=== PATIENT | male | born 1945 | race Caucasian/White ===

== ENCOUNTER 2023-10-28 11:27 | Observation (INO) | payer MEDICARE, OTHER, SELFPAY ==
[2023-10-28 11:28] VITALS: BP 115/79; PULSE 62; RESP 16; TEMP 36; O2SAT 96
[2023-10-28 11:49] LABS: Absolute Lymphocyte Count 1.02 X10^3/uL (0.83-4.51); Basophil# 0.06 X10^3/uL; Basophil% 0.8 % (0-1); Eosinophil# 0.17 X10^3/uL; Eosinophils% 2.2 % (0-5); Hematocrit 41.6 % (40-54); Hemoglobin 14.4 g/dL (13.0-16.5); Lymphocyte # 1.02 X10^3/ul (0.83-4.51); Lymphocyte % 13.1 % (19-41); Mean Corp Hgb Conc 34.6 g/dL (32-36); Mean Corpuscular Hgb 31.6 pg (27.0-32.0); Mean Corpuscular Volume 91.2 fL (80-94); Mean Platelet Vol. 10.9 fl (6.2-12.0); Monocyte% 6.4 % (0-10); NRBC Flagged by Analyzer 0 % (0-5); Neutrophil # 5.99 X10^3/uL (2.7-7.7); Neutrophil % 77.2 % (47-70); Platelet Count 228 K/mm3 (150-450); RBC Distribution Width CV 12.1 % (11.6-14.6); RBC Distribution Width SD 40.1 fl (35.1-43.9); Red Blood Count 4.56 M/mm3 (4.6-6.2); White Blood Count 7.8 K/mm3 (4.4-11.0)
[2023-10-28 11:53] LABS: Bedside Glucose > 500 mg/dL (74-106)
[2023-10-28 12:12] LABS: Mucous, Urine 0 SEEN /hpf (<or=2+); Red Blood Cells-Urine 0 SEEN /hpf (0-5)
--- NOTE | 2023-10-28 12:14 | EX.ED.DYSGE1 ---
HPI <SITA Biggs - Last Filed: 10/28/23 15:22> History of Present Illness Chief Complaint: Hyperglycemia Narrative Narrative: 78 old male with past medical history of type 2 diabetes states has had 2 weeks of dry mouth, increased thirst, fatigue and increased urination. He thinks his sugars might be running high but he does not check it at home. He has been on metformin 1000 twice a day for years. No insulin. He states he eats a lot of sweets. He has never been hospitalized for hyperglycemia or had DKA to his knowledge. He has no fever, chills, cough, abdominal pain or vomiting or diarrhea. PFSH <SITA Biggs - Last Filed: 10/28/23 15:22> [facility] Medical History HLD (hyperlipidemia) Diabetes Hypertension Home Medications ?Medication ?Instructions ?Recorded ?Last Taken ?Type atenolol 25 mg tablet 25 mg PO DAILY 10/28/23 10/28/23 History metformin 1,000 mg tablet 1,000 mg PO BID 10/28/23 10/28/23 History pantoprazole 20 mg tablet,delayed 20 mg PO DAILY 10/28/23 10/28/23 History release pioglitazone 15 mg tablet 15 mg PO DAILY 10/28/23 10/28/23 History rosuvastatin 40 mg tablet 40 mg PO QPM 10/28/23 10/27/23 History Allergy/AdvReac Type Severity Reaction Status Date / Time No Known Allergies Allergy Verified 10/28/23 11:28 Social History Smoking Status: Former smoker ROS <SITA Biggs - Last Filed: 10/28/23 15:22> ROS ED ROS Narrative Constitutional: Negative for fever, chills. CVS: Negative for chest pain Respiratory: Negative for shortness of breath. GI: Negative for abdominal pain, nausea, vomiting. EXAM <SITA Biggs - Last Filed: 10/28/23 15:22> Physical Exam Narrative Exam Narrative: CONST: Patient sitting in no acute distress. EYES: Normal inspection. ENT: Normal inspection, slightly dry mucous membranes. NECK: Normal inspection. RESP: No respiratory distress, CTAB. CVS: Regular rate and rhythm, no murmur, no gallop. ABD: Soft and nontender, no guarding or rebound, nondistended. SKIN: Color normal, no rash, warm, dry, intact. EXTREMITIES: Normal appearance, no pedal edema. NEURO: Alert and answering questions appropriately. PSYCH: Normal affect. Const Vital Signs: 10/28/23 11:28 10/28/23 11:59 10/28/23 13:08 Temperature 96.8 F L Temperature Source Temporal Pulse Rate 62 64 Respiratory Rate 16 16 Respiratory Effort Normal Non-Labored Respiratory Pattern Normal Blood Pressure 115/79 134/80 H Blood Pressure Mean 91 98 Pulse Ox 96 96 Oxygen Delivery Method Room Air Room Air 10/28/23 14:58 Temperature Temperature Source Pulse Rate 60 Respiratory Rate 18 Respiratory Effort Respiratory Pattern Blood Pressure 134/80 H Blood Pressure Mean 98 Pulse Ox 97 Oxygen Delivery Method Room Air <Dieter Collado MD - Last Filed: 10/28/23 19:37> Physical Exam Const Vital Signs: 10/28/23 11:28 10/28/23 11:59 10/28/23 13:08 Temperature 96.8 F L Temperature Source Temporal Pulse Rate 62 64 Respiratory Rate 16 16 Respiratory Effort Normal Non-Labored Respiratory Pattern Normal Blood Pressure 115/79 134/80 H Blood Pressure Mean 91 98 Pulse Ox 96 96 Oxygen Delivery Method Room Air Room Air 10/28/23 14:58 Temperature Temperature Source Pulse Rate 60 Respiratory Rate 18 Respiratory Effort Respiratory Pattern Blood Pressure 134/80 H Blood Pressure Mean 98 Pulse Ox 97 Oxygen Delivery Method Room Air MDM <SITA Biggs - Last Filed: 10/28/23 15:22> [facility] Narrative Medical decision making narrative: 78-year-old male with past medical history of type 2 diabetes on metformin presents with 2 weeks of fatigue, polydipsia and polyuria. He appears well and nontoxic. Vital signs stable. He has mildly dry mucous membranes with an otherwise benign exam. Blood glucose is 729 with normal CO2 and anion gap. Ketones negative. He has pseudohyponatremia at 125 with corrected sodium of 135, potassium 5.2, creatinine 1.57. Outside records on 03/05/2023 showed a CMP with normal creatinine of 1.06 so this is consistent with RAJENDRA. Blood gas shows normal pH of 7.363. This is consistent with diabetic hyperglycemia without DKA. After 2 L of IV fluids blood sugar is 474. I spoke with the hospitalist and Dr. Her recommended ordering Humalog 15 units and admission to [facility] for observation. Patient was agreeable with this plan. Lab Data Attestation: I reviewed the patient's lab results. Labs: Laboratory Results - last 24 hr 10/28/23 10/28/23 10/28/23 11:34 11:40 12:10 WBC 7.8 RBC 4.56 L Hgb 14.4 Hct 41.6 MCV 91.2 MCH 31.6 MCHC 34.6 RDW Std Deviation 40.1 RDW Coeff of Zen 12.1 Plt Count 228 MPV 10.9 Immature Gran % (Auto) 0.300 Neut % (Auto) 77.2 H Lymph % (Auto) 13.1 L [place] % (Auto) 6.4 Eos % (Auto) 2.2 Baso % (Auto) 0.8 Absolute Neuts (auto) 6.0 Absolute Lymphs (auto) 1.02 Nucleated RBC % 0 Sodium 125 L Potassium 5.2 H Chloride 92 L Carbon Dioxide 27.0 Anion Gap 6 BUN 22 H Creatinine 1.57 H Est GFR (MDRD) Af Amer 56 L Est GFR (MDRD) Non-Af 46 L BUN/Creatinine Ratio 14.0 Glucose 729 H* Calcium 9.7 Phosphorus 3.7 Magnesium 2.0 Total Bilirubin 1.30 H AST 12 L ALT 25 Alkaline Phosphatase 68 Total Protein 7.3 Albumin 3.7 Globulin 3.6 Albumin/Globulin Ratio 1.0 Urine Color Yellow Urine Clarity Clear Urine pH 6.5 Ur Specific [place] 1.005 Urine Protein Negative Urine Glucose (UA) 1000 H Urine Ketones 5 H Urine Occult Blood Negative Urine Nitrite Negative Urine Bilirubin Negative Urine Urobilinogen Normal Ur Leukocyte Esterase 500 H Urine RBC 0 SEEN Urine WBC 0-5 SEEN Ur Squamous Epith Cells 0-5 SEEN Urine Bacteria 1+ Urine Mucus 0 SEEN Urine Yeast 1+ Acetone Level POC Glucose > 500 H* 10/28/23 10/28/23 12:30 14:35 WBC RBC Hgb Hct MCV MCH MCHC RDW Std Deviation RDW Coeff of Zen Plt Count MPV Immature Gran % (Auto) Neut % (Auto) Lymph % (Auto) [place] % (Auto) Eos % (Auto) Baso % (Auto) Absolute Neuts (auto) Absolute Lymphs (auto) Nucleated RBC % Sodium Potassium Chloride Carbon Dioxide Anion Gap BUN Creatinine Est GFR (MDRD) Af Amer Est GFR (MDRD) Non-Af BUN/Creatinine Ratio Glucose Calcium Phosphorus Magnesium Total Bilirubin AST ALT Alkaline Phosphatase Total Protein Albumin Globulin Albumin/Globulin Ratio Urine Color Urine Clarity Urine pH Ur Specific [place] Urine Protein Urine Glucose (UA) Urine Ketones Urine Occult Blood Urine Nitrite Urine Bilirubin Urine Urobilinogen Ur Leukocyte Esterase Urine RBC Urine WBC Ur Squamous Epith Cells Urine Bacteria Urine Mucus Urine Yeast Acetone Level NEGATIVE POC Glucose 474 H* ABG Data ABG results: ABG 10/28/23 12:42 Specimen Type CHIDI Sample Site Not entered O2 % 21.0 VBG pH 7.36 VBG pO2 27 VBG HCO3 26 VBG Total CO2 27 VBG O2 Sat (Calc) 48 L VBG Base Excess 0 POC Mix VBG pCO2 Pt Tmp 45.1 O2 Delivery Device Not entered <Dieter Collado MD - Last Filed: 10/28/23 19:37> [facility] Lab Data Labs: Laboratory Results - last 24 hr 10/28/23 10/28/23 10/28/23 11:34 11:40 12:10 WBC 7.8 RBC 4.56 L Hgb 14.4 Hct 41.6 MCV 91.2 MCH 31.6 MCHC 34.6 RDW Std Deviation 40.1 RDW Coeff of Zen 12.1 Plt Count 228 MPV 10.9 Immature Gran % (Auto) 0.300 Neut % (Auto) 77.2 H Lymph % (Auto) 13.1 L [place] % (Auto) 6.4 Eos % (Auto) 2.2 Baso % (Auto) 0.8 Absolute Neuts (auto) 6.0 Absolute Lymphs (auto) 1.02 Nucleated RBC % 0 Sodium 125 L Potassium 5.2 H Chloride 92 L Carbon Dioxide 27.0 Anion Gap 6 BUN 22 H Creatinine 1.57 H Est GFR (MDRD) Af Amer 56 L Est GFR (MDRD) Non-Af 46 L BUN/Creatinine Ratio 14.0 Glucose 729 H* Calcium 9.7 Phosphorus 3.7 Magnesium 2.0 Total Bilirubin 1.30 H AST 12 L ALT 25 Alkaline Phosphatase 68 Total Protein 7.3 Albumin 3.7 Globulin 3.6 Albumin/Globulin Ratio 1.0 Urine Color Yellow Urine Clarity Clear Urine pH 6.5 Ur Specific [place] 1.005 Urine Protein Negative Urine Glucose (UA) 1000 H Urine Ketones 5 H Urine Occult Blood Negative Urine Nitrite Negative Urine Bilirubin Negative Urine Urobilinogen Normal Ur Leukocyte Esterase 500 H Urine RBC 0 SEEN Urine WBC 0-5 SEEN Ur Squamous Epith Cells 0-5 SEEN Urine Bacteria 1+ Urine Mucus 0 SEEN Urine Yeast 1+ Acetone Level POC Glucose > 500 H* 10/28/23 10/28/23 12:30 14:35 WBC RBC Hgb Hct MCV MCH MCHC RDW Std Deviation RDW Coeff of Zen Plt Count MPV Immature Gran % (Auto) Neut % (Auto) Lymph % (Auto) [place] % (Auto) Eos % (Auto) Baso % (Auto) Absolute Neuts (auto) Absolute Lymphs (auto) Nucleated RBC % Sodium Potassium Chloride Carbon Dioxide Anion Gap BUN Creatinine Est GFR (MDRD) Af Amer Est GFR (MDRD) Non-Af BUN/Creatinine Ratio Glucose Calcium Phosphorus Magnesium Total Bilirubin AST ALT Alkaline Phosphatase Total Protein Albumin Globulin Albumin/Globulin Ratio Urine Color Urine Clarity Urine pH Ur Specific [place] Urine Protein Urine Glucose (UA) Urine Ketones Urine Occult Blood Urine Nitrite Urine Bilirubin Urine Urobilinogen Ur Leukocyte Esterase Urine RBC Urine WBC Ur Squamous Epith Cells Urine Bacteria Urine Mucus Urine Yeast Acetone Level NEGATIVE POC Glucose 474 H* ABG Data ABG results: ABG 10/28/23 12:42 Specimen Type CHIDI Sample Site Not entered O2 % 21.0 VBG pH 7.36 VBG pO2 27 VBG HCO3 26 VBG Total CO2 27 VBG O2 Sat (Calc) 48 L VBG Base Excess 0 POC Mix VBG pCO2 Pt Tmp 45.1 O2 Delivery Device Not entered Management Discussion w/another healthcare provider: Hospitalist (Dr. Her) Treatment and Re-Evaluation :: Dr. Collado: I have personally performed a face to face assessment of the patient and have reviewed the JUANJO Note. I performed a substantive portion of the visit including all aspects of the following. My alexandra findings include: History is patient presents with feelings of generalized weakness, urinary frequency, does not check his blood sugars frequently although he is diabetic. Exam is afebrile. Vital signs noted. Regular rate and rhythm with intermittent bradycardia. Lungs clear to auscultation bilaterally. Abdomen soft nontender with normoactive bowel sounds. Neurological examination nonfocal and nonlateralizing. Medical Decision Making: Check labs. Concern is for hyperglycemia versus infectious process. Elevated blood sugars in the 700s. Administered 2 L normal saline. Recheck of blood sugar shows it to be in the 400s. Ketones negative. No evidence of diabetic ketoacidosis. Given his noncompliance, and still remaining elevated blood sugars, discussed with hospitalist for admission. Patient is in stable condition. Other additions or changes: [None] Discharge Plan Dx/Rx/DC Orders Clinical Impression: Hyperosmolar hyperglycemic state (HHS), RAJENDRA (acute kidney injury) Disposition Disposition: Acute Care Hospital [facility] Discharge Date/Time: 10/28/23 18:37
[2023-10-28 12:16] LABS: Color, Urine Yellow (Yellow); Glucose, Dipstick 1000 mg/dl (Normal); Ketone-Dipstick 5 mg/dl (Negative); Leukocyte Esterase-Dipstick 500 /ul (Negative); Nitrite-Dipstick Negative (Negative); Occult Blood-Urine Negative /ul (Negative); Protein-Dipstick Negative (Negative); Specific Gravity, Urine 1.005 (1.002-1.030); Urine Bilirubin Dipstick Negative (Negative); Urine Clarity Clear (Clear); Urine Urobilinogen Normal (Normal); Urine pH 6.5 (5.0 - 8.0)
[2023-10-28] MEDS: 0.9% Normal Saline (1000mL) 1,000 ML 999 ML IV ×2 (12:29→13:24)
[2023-10-28 12:30] LABS: Squamous Epithelial Cells - UA 0-5 SEEN /hpf (0-5); White Blood Cells 0-5 SEEN /hpf (0-5); Yeast-Urine 1+ /hpf (None Seen)
[2023-10-28 12:31] LABS: Bacteria 1+ /hpf (None Seen)
[2023-10-28 12:33] LABS: AST(SGOT) 12 U/L (15-37); Alanine Aminotransfer ALT/SGPT 25 U/L (16-61); Albumin, Serum 3.7 g/dL (3.2-5.0); Alkaline Phosphatase 68 U/L (45-117); Anion Gap 6 (5-15); BUN 22 mg/dL (7-18); Calcium,Total 9.7 mg/dL (8.5-10.1); Chloride 92 mmol/L (98-107); Creatinine, Serum 1.57 mg/dL (0.70-1.30); EST Glomerular Filtration Rate 46 mL/min (>60); Est Glom Filt Rate - Afr Amer 56 mL/min (>60); Globulin 3.6 g/dL (2.2-4.2); Glucose 729 mg/dL (74-106); Potassium 5.2 mmol/L (3.5-5.1); Protein, Total 7.3 g/dL (6.4-8.2); Sodium Level 125 mmol/L (136-145)
[2023-10-28 12:47] LABS: Blood Gas Specimen Type VEN; O2 Delivery Device Not entered; SITE Not entered; VBG BASE EXCESS 0 mmol/L (-1.0-3.5); VBG Bicarbonate 26 mmol/L (22-26); VBG PO2 27 mmHg (25-40); VBG SO2 48 % (50-70); VBG TCO2 27 mmol/L (23-33); VBG pCO2 45.1 mmHg (41-51); VBG pH 7.36 (7.32-7.42)
[2023-10-28 13:08] VITALS: BP 134/80; PULSE 64; RESP 16; O2SAT 96
[2023-10-28 14:53] LABS: Bedside Glucose 474 mg/dL (74-106)
[2023-10-28 14:58] VITALS: BP 134/80; PULSE 60; RESP 18; O2SAT 97
--- NOTE | 2023-10-28 15:18 | HP.PCM.HOS_ITS ---
[facility] - General General Date of Admission: 10/28/23 Date of Service: 10/28/23 Chief Complaint: Hypoglycemia with polyuria and polydipsia. HPI Narrative FRANK NOBLE, is a 78 M with history of known diabetes mellitus type 2 for many years came to ED with symptoms of generalized weakness, fatigue not feeling well for last 3 to 4 days. He says that he is having polyuria, polydipsia, and fatigue. Besides that, he denies any chest pain shortness of breath, fever, URI symptoms. Denies burning micturition. In ED, patient finger Accu-Chek was found very high and glucose in BMP was 729. Patient had 2 L of IV fluid normal saline bolus and then 15 units lispro insulin given. Patient is on oral hypoglycemic agents at home including metformin and pioglitazone. [facility] Medical History HLD (hyperlipidemia) Diabetes Hypertension Home Medications ?Medication ?Instructions ?Recorded ?Last Taken ?Type atenolol 25 mg tablet 25 mg PO DAILY 10/28/23 10/28/23 History metformin 1,000 mg tablet 1,000 mg PO BID 10/28/23 10/28/23 History pantoprazole 20 mg tablet,delayed 20 mg PO DAILY 10/28/23 10/28/23 History release pioglitazone 15 mg tablet 15 mg PO DAILY 10/28/23 10/28/23 History rosuvastatin 40 mg tablet 40 mg PO QPM 10/28/23 10/27/23 History Allergy/AdvReac Type Severity Reaction Status Date / Time No Known Allergies Allergy Verified 10/28/23 11:28 Social History Smoking Status: Former smoker ROS ROS Narrative Constitutional: Reports fatigue and weakness. No fever. HEENT: Reports systems reviewed and no addt'l complaints, except as documented Respiratory/Chest: No acute shortness of breath or respiratory distress or wheezing. CVS: Denies chest pain pressure or tightness Gastrointestinal: Denies coffee ground emesis, hematemesis or vomiting Genitourinary: Denies burning urination or new urinary tract symptoms Musculoskeletal: Denies acute joint pain or limited range of motion. No acute injury Neurologic: Denies seizure-like symptoms. skin: No ulcer. No rash Endocrinology: DM type II. Reports systems reviewed and no addt'l complaints, except as documented Hematologic/Lymphatic: Reports systems reviewed and no addt'l complaints, except as documented Rest 14 ROS are negative except as mentioned in HPI Vital Signs Vital Signs Vital Signs: 10/28/23 11:28 10/28/23 11:59 10/28/23 13:08 Temperature 96.8 F L Temperature Source Temporal Pulse Rate 62 64 Respiratory Rate 16 16 Respiratory Effort Normal Non-Labored Respiratory Pattern Normal Blood Pressure 115/79 134/80 H Blood Pressure Mean 91 98 Pulse Ox 96 96 Oxygen Delivery Method Room Air Room Air 10/28/23 14:58 Temperature Temperature Source Pulse Rate 60 Respiratory Rate 18 Respiratory Effort Respiratory Pattern Blood Pressure 134/80 H Blood Pressure Mean 98 Pulse Ox 97 Oxygen Delivery Method Room Air Physical Exam Narrative General: Alert, Oriented x3, Cooperative HEENT: Atraumatic, PERRLA, EOMI, Normocephalic Oral: Oral mucosa dry. No Gingival or Mucosal Lesions/ Ulcerations Neck: Supple, No JVD, Negative Carotid Bruits Chest wall/Lungs: Air entry diminished in bilateral lung bases. No crepitation/rhonchi Cardiovascular: Regular rate, Regular Rhythm, Normal S1, Normal S2, No M/G/R Abdomen: Bowel Sounds Present, Soft, Non Tender, Non-Distended : No dysuria. Polyuria. Light yellow color urine. No renal angle tenderness. No suprapubic tenderness. Extremities: No edema, Capillary Refill Less than 3 Seconds Skin: No rashes, No breakdown Musculoskeletal: No Tenderness to Palpation of Joints or Extremities Neurological: Cranial nerves II-XII grossly intact, DTR 2+/4. No acute focal neurological deficit. Psych/Mental Status: Normal Affect, Appropriate. Results Lab / Micro Data 10/28/23 11:40 10/28/23 11:40 Labs: Laboratory Results - last 24 hr 10/28/23 11:34: POC Glucose > 500 H* 10/28/23 11:40: WBC 7.8, RBC 4.56 L, Hgb 14.4, Hct 41.6, MCV 91.2, MCH 31.6, MCHC 34.6, RDW Std Deviation 40.1, RDW Coeff of Zen 12.1, Plt Count 228, MPV 10.9, Immature Gran % (Auto) 0.300, Neut % (Auto) 77.2 H, Lymph % (Auto) 13.1 L, [place] % (Auto) 6.4, Eos % (Auto) 2.2, Baso % (Auto) 0.8, Absolute Neuts (auto) 6.0, Absolute Lymphs (auto) 1.02, Nucleated RBC % 0, Sodium 125 L, Potassium 5.2 H, Chloride 92 L, Carbon Dioxide 27.0, Anion Gap 6, BUN 22 H, Creatinine 1.57 H, Est GFR (MDRD) Af Amer 56 L, Est GFR (MDRD) Non-Af 46 L, BUN/Creatinine Ratio 14.0, Glucose 729 H*, Calcium 9.7, Total Bilirubin 1.30 H, AST 12 L, ALT 25, Alkaline Phosphatase 68, Total Protein 7.3, Albumin 3.7, Globulin 3.6, Albumin/Globulin Ratio 1.0 10/28/23 12:10: Urine Color Yellow, Urine Clarity Clear, Urine pH 6.5, Ur Specific [place] 1.005, Urine Protein Negative, Urine Glucose (UA) 1000 H, Urine Ketones 5 H, Urine Occult Blood Negative, Urine Nitrite Negative, Urine Bilirubin Negative, Urine Urobilinogen Normal, Ur Leukocyte Esterase 500 H, Urine RBC 0 SEEN, Urine WBC 0-5 SEEN, Ur Squamous Epith Cells 0-5 SEEN, Urine Bacteria 1+, Urine Mucus 0 SEEN, Urine Yeast 1+ 10/28/23 12:30: Acetone Level NEGATIVE 10/28/23 14:35: POC Glucose 474 H* ABG Data ABG results: ABG 10/28/23 12:42 Specimen Type CHIDI Sample Site Not entered O2 % 21.0 VBG pH 7.36 VBG pO2 27 VBG HCO3 26 VBG Total CO2 27 VBG O2 Sat (Calc) 48 L VBG Base Excess 0 POC Mix VBG pCO2 Pt Tmp 45.1 O2 Delivery Device Not entered Assessment & Plan Assessment/Plan (1) RAJENDRA (acute kidney injury): (2) Hyperosmolar hyperglycemic state (HHS): PLAN: Plan This 78-year-old gentleman being admitted for hyperosmolar hyperglycemic state: 1. Hyperosmolar hyperglycemic state with history of type 2 diabetes mellitus: The patient is being admitted on MedSurg floor. Labs reviewed, glucose of 129. Anion gap normal. Bicarb 27. Serum acetone negative. DKA ruled out. Started on Accu-Cheks before meals and at bedtime cover with Humalog sliding scale. Started on Lantus 15 units subcutaneous daily and is scheduled Humalog insulin 8 units 3 times daily. Hold metformin and pioglitazone. A1c tomorrow AM. Continue IV fluid normal saline at 150 mill per hour for another 3 L. 2. RAJENDRA most likely prerenal from hyperglycemia: Monitor intake and output. BUNs/creatinine 22/1.57. After review of previous outside lab on February 2023, creatinine was normal at 1.06 therefore most likely RAJENDRA. Monitor kidney function electrolytes. 3. Hypertonic, hypovolemic hyponatremia due to uncontrolled hyperglycemial: Sodium is 125 due to hyperglycemia. Corrected glucose around 135 mEq. Continue IV fluid. 4. Hyperkalemia: Potassium is high probably due to electrolyte shift. Continue IV fluid normal saline and monitor BMP after 4 hours. 5. Dyslipidemia: Patient on rosuvastatin 40 mg daily continued. 6. Hypertension: Patient on atenolol 25 mg daily, continue from tomorrow a.m. 7. Possible GERD: Patient on PPI, continued Living will/advanced directive/end of life care: Patient does not have living will or advanced directive. Patient does not have diarrhea power of criminal defense attorney for health. His next of kin was present in the ED after discussion of benefits/risks procedures involved with full code, DNR CC arrest and DNR CC, the patient opted for full code. Patient does want artificial life support including intubation, tube feed, ventilator and/chest compression, central venous catheter, vasopressor and DC shock if needed Total time spent in [id number] encounter in discussion of advanced directive 17 minutes. Laboratory Results 10/28/23 11:34: POC Glucose > 500 H* 10/28/23 11:40: WBC 7.8, RBC 4.56 L, Hgb 14.4, Hct 41.6, MCV 91.2, MCH 31.6, MCHC 34.6, RDW Std Deviation 40.1, RDW Coeff of Zen 12.1, Plt Count 228, MPV 10.9, Immature Gran % (Auto) 0.300, Neut % (Auto) 77.2 H, Lymph % (Auto) 13.1 L, [place] % (Auto) 6.4, Eos % (Auto) 2.2, Baso % (Auto) 0.8, Absolute Neuts (auto) 6.0, Absolute Lymphs (auto) 1.02, Nucleated RBC % 0, Sodium 125 L, Potassium 5.2 H, Chloride 92 L, Carbon Dioxide 27.0, Anion Gap 6, BUN 22 H, Creatinine 1.57 H, Est GFR (MDRD) Af Amer 56 L, Est GFR (MDRD) Non-Af 46 L, BUN/Creatinine Ratio 14.0, Glucose 729 H*, Calcium 9.7, Total Bilirubin 1.30 H, AST 12 L, ALT 25, Alkaline Phosphatase 68, Total Protein 7.3, Albumin 3.7, Globulin 3.6, Albumin/Globulin Ratio 1.0 10/28/23 12:10: Urine Color Yellow, Urine Clarity Clear, Urine pH 6.5, Ur Specific [place] 1.005, Urine Protein Negative, Urine Glucose (UA) 1000 H, Urine Ketones 5 H, Urine Occult Blood Negative, Urine Nitrite Negative, Urine Bilirubin Negative, Urine Urobilinogen Normal, Ur Leukocyte Esterase 500 H, Urine RBC 0 SEEN, Urine WBC 0-5 SEEN, Ur Squamous Epith Cells 0-5 SEEN, Urine Bacteria 1+, Urine Mucus 0 SEEN, Urine Yeast 1+ 10/28/23 12:30: Acetone Level NEGATIVE 10/28/23 12:42: Specimen Type CHIDI, Sample Site Not entered, O2 % 21.0, VBG pH 7.36, VBG pO2 27, VBG HCO3 26, VBG Total CO2 27, VBG O2 Sat (Calc) 48 L, VBG Base Excess 0, POC Mix VBG pCO2 Pt Tmp 45.1, O2 Delivery Device Not entered 10/28/23 14:35: POC Glucose 474 H* Charges/Coding Visit Charges Inpatient E&M: 16934 Init Hosp L3 Procedures Hospitalists Procedures: 51570 Advncd Care Plan 30 Min
[2023-10-28] MEDS: Insulin Lispro 100 UNIT/ML INSULN.PEN 15 UNIT SC (15:38)
[2023-10-28 15:49] VITALS: BP 133/69; PULSE 72; RESP 15; TEMP 36.3; O2SAT 97
[2023-10-28 17:00] VITALS: BP 129/76; PULSE 65; RESP 16; O2SAT 94
[2023-10-28 17:52] LABS: Phosphorus 3.7 mg/dL (2.5-4.9)
[2023-10-28 18:48] VITALS: BMI 28.3
[2023-10-28] MEDS: Insulin Lispro 100 UNIT/ML INSULN.PEN 8 UNIT SC (19:02)
[2023-10-28] MEDS: Insulin Lispro 100 UNIT/ML INSULN.PEN SC (19:04)
[2023-10-28 19:05] VITALS: BP 128/70; PULSE 56; RESP 16; TEMP 36.6; O2SAT 96
[2023-10-28 19:26] LABS: Bedside Glucose 229 mg/dL (74-106)
[2023-10-28] MEDS: 0.9% Normal Saline (1000mL) 1,000 ML 150 ML IV (19:51)
[2023-10-28] MEDS: Heparin Injection (Vial) 5,000 UNIT/ML VIAL 5000 UNIT SC (20:37)
[2023-10-28] MEDS: Atorvastatin Calcium 80 MG Tablet PO (20:39)
[2023-10-28 22:37] LABS: Osmolality, Urine 695 mOsm/KG
[2023-10-28 23:09] LABS: Bedside Glucose 149 mg/dL (74-106)
[2023-10-28 23:54] LABS: Bedside Glucose 176 mg/dL (74-106)
[2023-10-29] MEDS: 0.9% Normal Saline (1000mL) 1,000 ML 150 ML IV ×2 (03:06→03:28)
[2023-10-29 03:49] VITALS: BMI 28.3
[2023-10-29] MEDS: Heparin Injection (Vial) 5,000 UNIT/ML VIAL 5000 UNIT SC (05:42)
[2023-10-29] MEDS: Insulin Lispro 100 UNIT/ML INSULN.PEN SC ×2 (05:44→12:26)
[2023-10-29 05:52] VITALS: BP 144/73; PULSE 59; RESP 16; TEMP 36.8; O2SAT 96
[2023-10-29 06:30] LABS: Bedside Glucose 264 mg/dL (74-106)
--- NOTE | 2023-10-29 07:50 | PN.HOSP_ITS ---
Reason for Visit Reason for Visit: Diagnoses Type 2 diabetes mellitus with hyperosmolarity without nonketotic hyperglycemic- hyperosmolar coma ([facility]) (10/28/23) Acute kidney failure, unspecified (10/28/23) Subjective Subjective Feeling well. Had not felt well for weeks, was having polyuria and polydypsia. Objective Data Objective Data Vital Signs: Vital Signs Temp Pulse Resp BP Pulse Ox O2 Del Method 36.8 C 59 L 16 144/73 H 96 Room Air 10/29/23 05:52 10/29/23 05:52 10/29/23 05:52 10/29/23 05:52 10/29/23 05:52 10/29/23 05:52 Oxygen Delivery Method Room Air Weight: 74.9 kg Body Mass Index (BMI) 28.3 Intake & Output: Intake and Output for Last 24 Hours 10/27/23 10/28/23 10/29/23 23:59 23:59 23:59 Intake Total 1999 / 1999 1555 / 1555 Output Total 200 / 200 400 / 400 Balance 1800 / 1800 1155 / 1155 Lab / Micro Data 10/28/23 11:40 10/28/23 11:40 Labs: Laboratory Results - last 24 hr 10/28/23 11:34: POC Glucose > 500 H* 10/28/23 11:40: WBC 7.8, RBC 4.56 L, Hgb 14.4, Hct 41.6, MCV 91.2, MCH 31.6, MCHC 34.6, RDW Std Deviation 40.1, RDW Coeff of Zen 12.1, Plt Count 228, MPV 10.9, Immature Gran % (Auto) 0.300, Neut % (Auto) 77.2 H, Lymph % (Auto) 13.1 L, [place] % (Auto) 6.4, Eos % (Auto) 2.2, Baso % (Auto) 0.8, Absolute Neuts (auto) 6.0, Absolute Lymphs (auto) 1.02, Nucleated RBC % 0, Sodium 125 L, Potassium 5.2 H, Chloride 92 L, Carbon Dioxide 27.0, Anion Gap 6, BUN 22 H, Creatinine 1.57 H, Est GFR (MDRD) Af Amer 56 L, Est GFR (MDRD) Non-Af 46 L, BUN/Creatinine Ratio 14.0, Glucose 729 H*, Calcium 9.7, Phosphorus 3.7, Magnesium 2.0, Total Bilirubin 1.30 H, AST 12 L, ALT 25, Alkaline Phosphatase 68, Total Protein 7.3, Albumin 3.7, Globulin 3.6, Albumin/Globulin Ratio 1.0 10/28/23 12:10: Urine Color Yellow, Urine Clarity Clear, Urine pH 6.5, Ur Specific [place] 1.005, Urine Protein Negative, Urine Glucose (UA) 1000 H, Urine Ketones 5 H, Urine Occult Blood Negative, Urine Nitrite Negative, Urine Bilirubin Negative, Urine Urobilinogen Normal, Ur Leukocyte Esterase 500 H, Urine RBC 0 SEEN, Urine WBC 0-5 SEEN, Ur Squamous Epith Cells 0-5 SEEN, Urine Bacteria 1+, Urine Mucus 0 SEEN, Urine Yeast 1+ 10/28/23 12:30: Acetone Level NEGATIVE 10/28/23 14:35: POC Glucose 474 H* 10/28/23 18:59: POC Glucose 229 H 10/28/23 20:35: POC Glucose 149 H 10/28/23 21:05: Urine Osmolality 695 10/28/23 23:36: POC Glucose 176 H 10/29/23 05:44: POC Glucose 264 H ABG Data ABG results: ABG 10/28/23 12:42 Specimen Type CHIDI Sample Site Not entered O2 % 21.0 VBG pH 7.36 VBG pO2 27 VBG HCO3 26 VBG Total CO2 27 VBG O2 Sat (Calc) 48 L VBG Base Excess 0 POC Mix VBG pCO2 Pt Tmp 45.1 O2 Delivery Device Not entered Physical Exam Const alert and no apparent distress HEENT head/scalp atraumatic and moist oral mucous membranes Assessment & Plan Assessment/Plan (1) RAJENDRA (acute kidney injury): (2) Hyperosmolar hyperglycemic state (HHS): PLAN: Plan DM2, uncontrolled * admission glucose was 729 * received 15 units lispo in ED. * On glargine 15 units, 8 units lispo QAC and SSI. Would discharge with glarine 15 units/d. Advised to have him check is glucose in AM and PM and PRN. * a1c pending * Non-insulin dependent at home (metformin, pioglitazone). I strongly suspect he will be dischared with insulin upon discharge Hyponatremia: * suspect pseudohyponatremia from hyperglycemia * monitor Possible RAJENDRA * no baseline labs available. * on IVF Chronic conditions: * hyperlipidemia: continue rosuvastatin 40 mg daily * Hypertension: Patient on atenolol 25 mg daily, continue from tomorrow a.m. * Possible GERD: Patient on PPI, continued Code: Full.
[2023-10-29] MEDS: Pantoprazole Sodium 20 MG Tablet PO (08:16)
[2023-10-29] MEDS: Atenolol 25 MG Tablet PO (08:16)
[2023-10-29] MEDS: Insulin Lispro 100 UNIT/ML INSULN.PEN 8 UNIT SC ×2 (08:17→12:26)
[2023-10-29] MEDS: Glucerna Shake 120 ML LIQUID PO (08:18)
[2023-10-29] MEDS: Insulin Glargine-YFGN 100 UNIT/ML Pen 15 UNIT SC (08:19)
[2023-10-29 08:51] VITALS: BP 152/83; PULSE 73; RESP 16; TEMP 36.6; O2SAT 96
--- NOTE | 2023-10-29 09:13 | DS.PCM_ITS ---
Providers Date of Admission: 10/28/23 Primary Care Physician: Dr. Radha Quintanilla MD Reason For Visit: DM2 WITH HYPERGLYCEMIA RAJENDRA Diagnosis Discharge Diagnosis (1) RAJENDRA (acute kidney injury): Status: Acute Code(s): N17.9 - Acute kidney failure, unspecified (2) Hyperosmolar hyperglycemic state (HHS): Status: Acute Code(s): E11.00 - Type 2 diabetes mellitus with hyperosmolarity without nonketotic hyperglycemic-hyperosmolar coma (NKHHC) Plan DM2, uncontrolled * admission glucose was 729 * received 15 units lispo in ED. * On glargine 15 units, 8 units lispo QAC and SSI. Would discharge with glarine 15 units/d. Advised to have him check is glucose in AM and PM and PRN. * a1c pending * Non-insulin dependent at home (metformin, pioglitazone). I strongly suspect he will be dischared with insulin upon discharge Hyponatremia: * suspect pseudohyponatremia from hyperglycemia * monitor Possible RAJENDRA * no baseline labs available. * on IVF Chronic conditions: * hyperlipidemia: continue rosuvastatin 40 mg daily * Hypertension: Patient on atenolol 25 mg daily, continue from tomorrow a.m. * Possible GERD: Patient on PPI, continued Code: Full. Medications at Discharge Home Medications atenolol 25 mg tablet 25 mg PO DAILY 10/28/23 pantoprazole 20 mg tablet,delayed release 20 mg PO DAILY 10/28/23 rosuvastatin 40 mg tablet 40 mg PO QPM 10/28/23 insulin glargine-yfgn 100 unit/mL (3 mL) subcutaneous pen 15 unit (0.15 mL) subcut DAILY #15 mL 10/29/23 pen needle, diabetic 29 gauge #100 ea 10/29/23 Hospital Course Operations None Procedures None Summary of Care Provided Minutes Spent on Discharge: 35 Hospital Course: Patient presents feeling weak, associated polyuria and polydipsia. Patient was found to have a glucose of 729. Patient was a known type II diabetic and was taking metformin and pioglitazone. He however, stopped checking his blood sugar sometime ago so had no idea what his sugars have been. Is likely the patient has been hyperglycemic this whole time which is why he is likely feeling unwell. Patient received insulin here and his sugars went to the 200s. Patient does admit to noncompliance with diabetic diet and the fact that he likes sweets. Feel the patient can be discharged home today with continuing of Lantus. I suspect that there will be changes necessary moving forward but patient advised to check his glucose as well as keep a record of that to be able to provide to his primary care provider. Weight / BMI Weight Weight: 74.9 kg Body Mass Index (BMI) 28.3 ABG / Lab / Microbiology Data 10/28/23 11:40 10/28/23 11:40 Laboratory: Laboratory Results - last 24 hr 10/28/23 11:34: POC Glucose > 500 H* 10/28/23 11:40: WBC 7.8, RBC 4.56 L, Hgb 14.4, Hct 41.6, MCV 91.2, MCH 31.6, MCHC 34.6, RDW Std Deviation 40.1, RDW Coeff of Zen 12.1, Plt Count 228, MPV 10.9, Immature Gran % (Auto) 0.300, Neut % (Auto) 77.2 H, Lymph % (Auto) 13.1 L, [place] % (Auto) 6.4, Eos % (Auto) 2.2, Baso % (Auto) 0.8, Absolute Neuts (auto) 6.0, Absolute Lymphs (auto) 1.02, Nucleated RBC % 0, Sodium 125 L, Potassium 5.2 H, Chloride 92 L, Carbon Dioxide 27.0, Anion Gap 6, BUN 22 H, Creatinine 1.57 H, Est GFR (MDRD) Af Amer 56 L, Est GFR (MDRD) Non-Af 46 L, BUN/Creatinine Ratio 14.0, Glucose 729 H*, Calcium 9.7, Phosphorus 3.7, Magnesium 2.0, Total Bilirubin 1.30 H, AST 12 L, ALT 25, Alkaline Phosphatase 68, Total Protein 7.3, Albumin 3.7, Globulin 3.6, Albumin/Globulin Ratio 1.0 10/28/23 12:10: Urine Color Yellow, Urine Clarity Clear, Urine pH 6.5, Ur Specific [place] 1.005, Urine Protein Negative, Urine Glucose (UA) 1000 H, Urine Ketones 5 H, Urine Occult Blood Negative, Urine Nitrite Negative, Urine Bilirubin Negative, Urine Urobilinogen Normal, Ur Leukocyte Esterase 500 H, Urine RBC 0 SEEN, Urine WBC 0-5 SEEN, Ur Squamous Epith Cells 0-5 SEEN, Urine Bacteria 1+, Urine Mucus 0 SEEN, Urine Yeast 1+ 10/28/23 12:30: Acetone Level NEGATIVE 10/28/23 14:35: POC Glucose 474 H* 10/28/23 18:59: POC Glucose 229 H 10/28/23 20:35: POC Glucose 149 H 10/28/23 21:05: Urine Osmolality 695 10/28/23 23:36: POC Glucose 176 H 10/29/23 05:44: POC Glucose 264 H ABG: ABG 10/28/23 12:42 Specimen Type CHIDI Sample Site Not entered O2 % 21.0 VBG pH 7.36 VBG pO2 27 VBG HCO3 26 VBG Total CO2 27 VBG O2 Sat (Calc) 48 L VBG Base Excess 0 POC Mix VBG pCO2 Pt Tmp 45.1 O2 Delivery Device Not entered D/C Instructions Discharge Diet: 2000 Calorie Control Diet Meaningful Use Info Meaningful Use Meaningful Use Diagnoses (Choose all that apply): None applicable Ischemic Stroke Statin Dosing Therapy Reference: STATIN DOSE THERAPY REFERENCE: * Patients > 75 years receive moderate or high dose statin therapy. * Patients 75 years or YOUNGER should receive HIGH intensity statin dose unless contraindicated. You will be required to document reason for non-treatment if statin daily dose does not meet guidelines. HIGH DOSE STATIN THERAPY DAILY Atorvastatin > than or = to 40 mg Rosuvastatin > than or = to 20 mg Amlodipine + Atorvastatin > than or = to 2.5/40 mg Ezetimibe + Simvastatin 10/80 mg Simvastatin 80mg Discharge Plan Admission Admit Date/Time: 10/28/23 15:18 Primary Reason for Your Visit: Uncontrolled diabetes mellitus type 2 Attending Provider: Andrew Galeas Primary Care Provider: Radha Quintanilla Consulting Providers: Víctor Her Instructions Patient Instructions: Diabetes Food Shop Meals Prep, Diabetes Food Tips Ch, Diabetes Care Ch Additional Instructions / Restrictions: You will be on insulin glargine (also known as Lantus) daily. Please check your sugar twice daily (in the morning and the evening) and as needed. Keep a record of your glucose checks to be able to provide to your doctor so that you and your physician can make adjustments as needed. The pioglitazone (Actos) and metformin (Glucophage) were unaffected for your diabetes and will be discontinued moving forward. Discharge Orders/Prescriptions Prescriptions: New insulin glargine-yfgn 100 unit/mL (3 mL) Insulin Pen 15 unit subcut DAILY Qty: 15 0RF (DME) pen needle, diabetic 29 gauge needle See Rx Instructions .Route Qty: 100 0RF Rx Instructions: As directed Continued atenolol 25 mg tablet 25 mg PO DAILY pantoprazole 20 mg tablet,delayed release (DR/EC) 20 mg PO DAILY rosuvastatin 40 mg tablet 40 mg PO QPM Discontinued pioglitazone 15 mg tablet 15 mg PO DAILY metformin 1,000 mg tablet 1,000 mg PO BID Other Ambulatory Orders: Glucometer (Routine) Timeframe: 1 Day Location: Determined by Patient Ordered By: Dr. Andrew Galeas Referrals / Follow Up: Radha Quintanilla MD [Primary Care Provider] - Within 2 Weeks Alicia Villalba MD [Non-Staff] - Disposition Disposition (needs filled in before D/C Order can be placed): Home, Self Care Charges/Coding Visit Charges Inpatient E&M: 07495 Disch Hosp >30min
--- NOTE | 2023-10-29 09:41 | CASEMGMT ---
Order for DC placed by Dr. Galeas. This RN CM to pt room at this time. Pt states that he does not have any diabetic supplies at home. Dr. Galeas wrote an electronic Rx for a glucometer as well as for an insulin pen and needles. This RN CM also collaborated with the MD to sign an Rx for BGM supplies. The MD signed an Rx for supplies [id number] lancets, 100 ETOH swabs, and 100 test strips. Physical copy provided to the pt at this time. Pt states that he does not have any further needs. Pt states that he is ind and that he drives. Pt will be picking the pt up from [facility] this afternoon. Pt denies the need for additional therapy or resources at home. Pt states that he feels safe and comfortable discharging home today with the prescriptions given to help him manage his DM II.
[2023-10-29 09:56] LABS: Anion Gap 4 (5-15); BUN 14 mg/dL (7-18); BUN/Creat Ratio 13.2 RATIO (10-20); Chloride 103 mmol/L (98-107); Creatinine, Serum 1.06 mg/dL (0.70-1.30); EST Glomerular Filtration Rate 72 mL/min (>60); Est Glom Filt Rate - Afr Amer 87 mL/min (>60); Estimated Creatinine Clearance 54.91 ml/min; Glucose 277 mg/dL (74-106); Potassium 3.5 mmol/L (3.5-5.1); Sodium Level 134 mmol/L (136-145)
--- NOTE | 2023-10-29 10:08 | PHA.DC_ITS ---
Pharmacy [facility] Pharmacy Service has performed discharge medication reconciliation and counseling for this patient. The patient's discharge medication list was reviewed for discrepancies and discrepancies were resolved. The patient was counseled on the following discharge medications and changes in medications for homegoing were reviewed. The Reason for Use, instructions for use, and potential side effects were reviewed for all new medications. The patient's questions regarding all of their medications were answered. 1. Lantus 15 units daily The patient was able to verbally demonstrate an understanding of their discharge medications. The patient was counselled on new medications by pharmacy tech customer service Santiago. Medications at Discharge Home Medications atenolol 25 mg tablet 25 mg PO DAILY 10/28/23 pantoprazole 20 mg tablet,delayed release 20 mg PO DAILY 10/28/23 rosuvastatin 40 mg tablet 40 mg PO QPM 10/28/23 insulin glargine-yfgn 100 unit/mL (3 mL) subcutaneous pen 15 unit (0.15 mL) subcut DAILY #15 mL 10/29/23 pen needle, diabetic 29 gauge #100 ea 10/29/23
[2023-10-29 11:37] VITALS: BP 124/84; PULSE 61; RESP 16; TEMP 36.9; O2SAT 97
[2023-10-29 11:46] LABS: Bedside Glucose 267 mg/dL (74-106)
[2023-10-29 23:40] LABS: Hemoglobin A1c 12.3 % (3.8-5.6)
== END 2023-10-29 14:10 | disposition home or self-care (01) ==
LOC: ED 18:14 → MS3 18:33
PROVIDERS: Physician Assistant; Admitting Provider Internal Medicine; Emergency Provider Emergency Medicine; PCP Internal Medicine
DX: E11.00 Type 2 diabetes mellitus with hyperosmolarity without nonketotic hyperglycemic-hyperosmolar coma (NKHHC) (principal); Z79.4 Long term (current) use of insulin; N17.9 Acute kidney failure, unspecified; I10 Essential (primary) hypertension; Z79.84 Long term (current) use of oral hypoglycemic drugs; Z87.891 Personal history of nicotine dependence; E78.5 Hyperlipidemia, unspecified; E87.1 Hypo-osmolality and hyponatremia; Z91.119 Patient's noncompliance with dietary regimen due to unspecified reason
CPT/HCPCS: 80048; 80053; 81001; 82009; 82803; 82962; 83036; 83735; 83935; 84100; 85025; 94668; 96360; 96361; 96372; 97802; 99221; 99284; J7030; A4216; G0378

== ENCOUNTER 2025-04-04 14:55 | Emergency (ER) | payer MEDICARE, OTHER, SELFPAY ==
[2025-04-04] VITALS (7 sets, daily range): BP systolic 120–169; BP diastolic 77–111; PULSE 81–92; RESP 13–20; TEMP 36.1–36.6; O2SAT 96–99; BMI 30.3
--- NOTE | 2025-04-04 17:10 | EKG12_ITS ---
Test Reason : Blood Pressure : */* mmHG Vent. Rate : 89 BPM Atrial Rate : 89 BPM P-R Int : 220 ms QRS Dur : 102 ms QT Int : 364 ms P-R-T Axes : 58 34 61 degrees QTcB Int : 442 ms Sinus rhythm with 1st degree A-V block Inferior infarct , age undetermined Abnormal ECG Confirmed by Chris Veliz ([id number]), script editor NIALL DAVIDSON ([id number]) on 04/06/2025 10:27:59 AM Referred By: Confirmed By: Chris Veliz
[2025-04-04] MEDS: 0.9% Normal Saline (1000mL) 1,000 ML 1000 ML IV (17:27)
[2025-04-04 17:35] LABS: Hematocrit 42.7 % (40-54); Hemoglobin 14.6 g/dL (13.0-16.5); Immature Granulocytes Count 0.040 X10^3/uL (0.0-0.0); Mean Corp Hgb Conc 34.2 g/dL (32-36); Mean Corpuscular Volume 93.0 fL (80-94); Mean Platelet Vol. 10.1 fl (6.2-12.0); NRBC Flagged by Analyzer 0 % (0-5); Platelet Count 262 K/mm3 (150-450); RBC Distribution Width CV 13.2 % (11.6-14.6); RBC Distribution Width SD 44.6 fl (35.1-43.9); Red Blood Count 4.59 M/mm3 (4.6-6.2); White Blood Count 10.8 K/mm3 (4.4-11.0)
--- NOTE | 2025-04-04 17:45 | RAD_ITS ---
PROCEDURE: CHEST PA AND LATERAL 04/04/2025 REASON FOR EXAM: GENERALIZED WEAKNESS TECHNIQUE: Procedure Code: RADCXR Modality: DX Procedure: CHEST PA AND LATERAL FINDINGS: No focal consolidation. No pleural effusion or pneumothorax. Cardiac silhouette is within normal limits. No acute fractures. RAD/Chest PA and Lateral IMPRESSION: No focal consolidations. Reading Location: [id number]
[2025-04-04 18:04] LABS: AST(SGOT) 163 U/L (<=37); Alanine Aminotransfer ALT/SGPT 337 U/L (<=46); Albumin, Serum 4.4 g/dL (3.4-4.8); Alkaline Phosphatase 114 U/L (40-129); Anion Gap 11 (5-15); BUN 32 mg/dL (4-19); BUN/Creat Ratio 31.8 RATIO (10-20); Calcium,Total 11.4 mg/dL (7.6-11.0); Carbon Dioxide 24.5 mmol/L (21.0-32.0); Chloride 97 mmol/L (98-108); Estimated Creatinine Clearance 59.12 ml/min (50-250); Globulin 3.2 g/dL (2.2-4.2); Glucose 218 mg/dL (70-99); Potassium 4.5 mmol/L (3.3-5.1)
[2025-04-04 18:16] LABS: Troponin T High Sensitivity 19 ng/L (<=22)
--- NOTE | 2025-04-04 18:29 | EX.ED.DYSGE1 ---
HPI History of Present Illness Chief Complaint: Abd Pain Narrative Narrative: Patient was seen and examined after presenting to ED for generalized symptoms feels weak states has been ongoing off and on for about a month states that he feels very tired and fatigued. [facility] Medical History HLD (hyperlipidemia) Diabetes Hypertension Home Medications ?Medication ?Instructions ?Recorded ?Last Taken ?Type atenolol 25 mg tablet 25 mg PO DAILY 10/28/23 04/04/25 History pantoprazole 20 mg tablet,delayed 20 mg PO DAILY 10/28/23 04/03/25 History release rosuvastatin 40 mg tablet 40 mg PO QPM 10/28/23 04/03/25 History pen needle, diabetic 29 gauge #100 ea 10/29/23 Unknown Rx dicyclomine 10 mg capsule 10 mg PO TID PRN abdominal pain 04/04/25 Unknown Rx #21 caps glipizide 10 mg tablet, extended 20 mg PO DAILY 04/04/25 04/04/25 History release 24 hr insulin glargine 100 unit/mL (3 32 unit subcut QPM 04/04/25 04/03/25 History mL) subcutaneous pen (Basaglar KwikPen U-100 Insulin) lisinopril 2.5 mg tablet 2.5 mg PO DAILY 04/04/25 04/04/25 History metformin 500 mg tablet,extended 1,000 mg PO QPM 04/04/25 04/04/25 History release 24 hr Allergy/AdvReac Type Severity Reaction Status Date / Time No Known Allergies Allergy Verified 04/04/25 14:57 Family History Father Myocardial infarction Social History household members: spouse Smoking Status: Never smoker ROS ROS ED ROS Narrative Pertinent Positives: Generalized weakness and feeling fatigued and tired Pertinent Negatives: Chest pain pressure shortness of breath vomiting diarrhea black or bloody stools urinary symptoms fevers or chills The remainder of review of systems negative unless otherwise stated in the HPI above. Systems reviewed including constitutional, psychiatric, cardiovascular, respiratory, integument, HENT, gastrointestinal. EXAM Physical Exam Narrative Exam Narrative: Patient is afebrile hemodynamically stable does not appear toxic or in distress he is normocephalic and atraumatic normal heart and lung sounds abdomen soft nontender nondistended no palpable pulsatile mass he has intact and equal MSPs in his extremities no lower extremity edema or calf tenderness. Const Vital Signs: 04/04/25 14:56 04/04/25 16:56 04/04/25 18:04 Temperature 97 F L Temperature Source Temporal Pulse Rate 91 92 88 Respiratory Rate 16 16 20 H Blood Pressure 120/77 157/93 H 151/94 H Blood Pressure Mean 91 114 113 Pulse Ox 96 98 98 Oxygen Delivery Method Room Air Room Air Room Air 04/04/25 19:47 04/04/25 20:11 Temperature Temperature Source Pulse Rate 88 88 Respiratory Rate 13 15 Blood Pressure 169/111 H 162/93 H Blood Pressure Mean 130 116 Pulse Ox 99 97 Oxygen Delivery Method Room Air MDM MDM MDM Narrative Medical decision making narrative: Nursing notes, triage notes, available previous documentation, and vital signs were reviewed. Any discrepancies noted were addressed. Differential Diagnoses: Evaluate for UTI or pneumonia or cardiac causes low suspicion for PE will evaluate for electrolyte abnormalities Interventions: Bentyl Fluids Given: 1 L normal saline Labs Reviewed: No leukocytosis leukopenia anemia no significant electrolyte abnormality creatinine is 1.0 patient has mild transaminitis AST is 163 with an ALT of 337 initial troponin is 19 patient has no abdominal pain whatsoever without could be a transient elevation from like a viral process delta troponin is also 19. Urine without evidence of infection Imaging Reviewed: Personally reviewed and interpreted by me: Chest x-ray no pneumonia no widened mediastinum no pneumothoraces no edema there are some perihilar thickening however could be chronic changes EKG: Sinus rhythm rate is 89 AL intervals 228 QTc is otherwise appropriate first-degree block. EKG interpretation is noted and agreed to in the EMR. The interpretation of this patient's EKG contributed directly to the care and management of this patient. Previous Documentation Reviewed: None available or applicable at this time. ED Course: Patient presenting with symptoms as stated above does have mild transaminitis this could be related to a viral process as well has no abdominal pain whatsoever when I am palpating him. 2204: Patient will be given some Bentyl labs however were unremarkable. Abdomen again on reassessment completely soft nontender nondistended concerned that it could be more like a cramping abdominal type pain so that is why we will give him Bentyl return precautions follow-up recommendations provided patient stable for discharge This note was made utilizing voice recognition software. All attempts were made to correct spelling or other errors prior to note completion. However, due to the fast-paced nature of emergency medicine, some errors may still be present. Lab Data Labs: Laboratory Results - last 24 hr 04/04/25 04/04/25 04/04/25 17:07 17:28 17:35 WBC 10.8 RBC 4.59 L Hgb 14.6 Hct 42.7 MCV 93.0 MCH 31.8 MCHC 34.2 RDW Std Deviation 44.6 H RDW Coeff of Zen 13.2 Plt Count 262 MPV 10.1 Immature Gran % (Auto) 0.400 Neut % (Auto) 81.2 H Lymph % (Auto) 9.3 L [place] % (Auto) 8.3 Eos % (Auto) 0.4 Baso % (Auto) 0.4 Absolute Neuts (auto) 8.8 H Absolute Lymphs (auto) 1.01 Nucleated RBC % 0 Sodium 132 L Potassium 4.5 Chloride 97 L Carbon Dioxide 24.5 Anion Gap 11 BUN 32 H Creatinine 1.00 Estim Creat Clear Calc 59.12 Est GFR (MDRD) Non-Af 78 BUN/Creatinine Ratio 31.8 H Glucose 218 H Calcium 11.4 H Total Bilirubin 1.13 AST 163 H ALT 337 H Alkaline Phosphatase 114 Troponin T High Sens 19 Troponin T Hi Sens 2 Hr Total Protein 7.6 Albumin 4.4 Globulin 3.2 Albumin/Globulin Ratio 1.4 Urine Color Urine Clarity Urine pH Ur Specific [place] Urine Protein Urine Glucose (UA) Urine Ketones Urine Occult Blood Urine Nitrite Urine Bilirubin Urine Urobilinogen Ur Leukocyte Esterase Urine RBC Urine WBC Ur Squamous Epith Cells Urine Bacteria Urine Mucus POC Glucose 220 H 04/04/25 04/04/25 04/04/25 18:51 18:53 19:10 WBC RBC Hgb Hct MCV MCH MCHC RDW Std Deviation RDW Coeff of Zen Plt Count MPV Immature Gran % (Auto) Neut % (Auto) Lymph % (Auto) [place] % (Auto) Eos % (Auto) Baso % (Auto) Absolute Neuts (auto) Absolute Lymphs (auto) Nucleated RBC % Sodium Potassium Chloride Carbon Dioxide Anion Gap BUN Creatinine Estim Creat Clear Calc Est GFR (MDRD) Non-Af BUN/Creatinine Ratio Glucose Calcium Total Bilirubin AST ALT Alkaline Phosphatase Troponin T High Sens Troponin T Hi Sens 2 Hr 19 Total Protein Albumin Globulin Albumin/Globulin Ratio Urine Color Yellow Urine Clarity Clear Urine pH 6.0 Ur Specific [place] 1.015 Urine Protein 30 H Urine Glucose (UA) 50 H Urine Ketones Negative Urine Occult Blood Negative Urine Nitrite Negative Urine Bilirubin Negative Urine Urobilinogen Normal Ur Leukocyte Esterase Negative Urine RBC 0-5 SEEN Urine WBC 0-5 SEEN Ur Squamous Epith Cells 0 SEEN Urine Bacteria 0 SEEN Urine Mucus 0 SEEN POC Glucose 189 H Radiography Diagnostic Testing: Clinical Impression(s) from Imaging Studies Chest X-Ray 04/04/25 17:45 IMPRESSION: No focal consolidations. Reading Location: [facility] Discharge Plan Triage Chief Complaint: Abd Pain ED Provider: Neil Metz Dx/Rx/DC Orders Clinical Impression: Fatigue, Abdominal cramping Instructions: ED Abdominal Pain Unkn Cause Fem Prescriptions: New dicyclomine 10 mg capsule 10 mg PO TID PRN (Reason: abdominal pain) Qty: 21 0RF No Action glipizide 10 mg tablet extended release 24hr 20 mg PO DAILY metformin 500 mg tablet extended release 24 hr 1,000 mg PO QPM lisinopril 2.5 mg tablet 2.5 mg PO DAILY insulin glargine [Basaglar KwikPen U-100 Insulin] 100 unit/mL (3 mL) insulin pen 32 unit subcut QPM atenolol 25 mg tablet 25 mg PO DAILY pantoprazole 20 mg tablet,delayed release (DR/EC) 20 mg PO DAILY rosuvastatin 40 mg tablet 40 mg PO QPM (DME) pen needle, diabetic 29 gauge needle See Rx Instructions .Route Qty: 100 0RF Rx Instructions: As directed Primary Care Provider: Care Physician,No Primary Referrals: Care Physician,No Primary [Primary Care Provider, Medical] Activity Restrictions/Additional Instructions: Be sure to follow-up with your primary care doctor please return if getting worse Print Language: Thai Disposition Disposition: Home, Self Care
[2025-04-04 19:02] LABS: Mucous, Urine 0 SEEN /hpf (<or=2+); Squamous Epithelial Cells - UA 0 SEEN /hpf (0-5)
[2025-04-04 19:05] LABS: Color, Urine Yellow (Yellow); Glucose, Dipstick 50 mg/dl (Normal); Ketone-Dipstick Negative (Negative); Leukocyte Esterase-Dipstick Negative /ul (Negative); Nitrite-Dipstick Negative (Negative); Occult Blood-Urine Negative /ul (Negative); Protein-Dipstick 30 mg/dl (Negative); Specific Gravity, Urine 1.015 (1.002-1.030); Urine Bilirubin Dipstick Negative (Negative)
[2025-04-04 19:25] LABS: Red Blood Cells-Urine 0-5 SEEN /hpf (0-5)
[2025-04-04] MEDS: Lidocaine 2% Viscous15 ML UDC 15 ML PO (19:53)
[2025-04-04 20:11] LABS: Troponin T High Sens 2 HR 19 ng/L (<=22)
--- NOTE | 2025-04-04 21:22 | CM.ED ---
Social Work Reason for visit: No PCP Patient verified that he does not currently have a PCP as his retired. [facility] provider list given to patient. No further needs at this time. 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
== END 2025-04-04 22:16 | disposition home or self-care (01) ==
PROVIDERS: Emergency Provider Specialist/Technologist Athletic Trainer; Visit Provider Specialist/Technologist Athletic Trainer
DX: R10.9 Unspecified abdominal pain (principal); E11.9 Type 2 diabetes mellitus without complications; Z79.4 Long term (current) use of insulin; R53.83 Other fatigue; E78.5 Hyperlipidemia, unspecified; I10 Essential (primary) hypertension; Z79.899 Other long term (current) drug therapy; Z79.84 Long term (current) use of oral hypoglycemic drugs
CPT/HCPCS: 71046; 80053; 81001; 82962; 84484; 85025; 93005; 96360; 96361; 99283; A4216

== ENCOUNTER 2025-04-11 16:17 | Emergency (ER) | payer MEDICARE, OTHER, SELFPAY ==
[2025-04-11 16:18] VITALS: BP 127/105; PULSE 121; RESP 18; TEMP 36.6; O2SAT 100; BMI 28.8
--- OUTSIDE RECORDS SUMMARY | 2025-04-11 16:26 | XMS RPT_ITS | CCD ---
Author Organization [facility] Care Team Providers Care Real Estate Instructor Name Role Phone Víctor Her Attending Unavailable Latouf Butros Primary Care Unavailable Arden, Víctor Admitting Unavailable Adal, Andrew Attending Unavailable Latouf Butros Primary Care Unavailable Arden, Víctor Consulting Unavailable Adal, Andrew Consulting Unavailable Latouf, Butros Primary Care Unavailable Arden, Víctor Admitting Unavailable Joppramya, Andrew Attending Unavailable Arden, Víctor Consulting Unavailable DR CASTILLO RAMIREZ MD Attending Unavailable CASTILLO RAMIREZ MD Primary Care Unavailable LATOUCASTILLO Mills MD Admitting Unavailable LATOUCASTILLO Mills MD Consulting Unavailable LATOUCASTILLO Mills MD Attending Unavailable PROVIDER, UNKNOWN Consulting Unavailable PROVIDER, UNKNOWN Consulting Unavailable PROVIDER, UNKNOWN Consulting Unavailable LATCASTILLO LOUIS MD Primary Care Unavailable LATOUCASTILLO Mills MD Admitting Unavailable LATOUCASTILLO Mills MD Attending Unavailable LATOUCASTILLO Mills MD Consulting Unavailable PROVIDER, UNKNOWN Consulting Unavailable PROVIDER, UNKNOWN Consulting Unavailable PROVIDER, UNKNOWN Consulting Unavailable CASTILLO RAMIREZ MD Primary Care Unavailable CASTILLO RAMIREZ MD Admitting Unavailable CASTILLO RAMIREZ MD Attending Unavailable CASTILLO RAMIREZ MD Consulting Unavailable PROVIDER, UNKNOWN Consulting Unavailable PROVIDER, UNKNOWN Consulting Unavailable PROVIDER, UNKNOWN Consulting Unavailable CASTILLO RAMIREZ MD Primary Care Unavailable LATOUCASTILLO Mills MD Admitting Unavailable LATOUCASTILLO Mills MD Attending Unavailable CASTILLO RAMIREZ MD Consulting Unavailable PROVIDER, UNKNOWN Consulting Unavailable PROVIDER, UNKNOWN Consulting Unavailable PROVIDER, UNKNOWN Consulting Unavailable CASTILLO RAMIREZ MD Primary Care Unavailable LATOUCASTILLO Mills MD Admitting Unavailable LATOUCASTILLO Mills MD Attending Unavailable CASTILLO RAMIREZ MD Consulting Unavailable PROVIDER, UNKNOWN Consulting Unavailable PROVIDER, UNKNOWN Consulting Unavailable PROVIDER, UNKNOWN Consulting Unavailable CASTILLO RAMIREZ MD Admitting Unavailable LATOUCASTILLO Mills MD Attending Unavailable CASTILLO RAMIREZ MD Consulting Unavailable CASTILLO RAMIREZ MD Primary Care Unavailable PROVIDER, UNKNOWN Consulting Unavailable PROVIDER, UNKNOWN Consulting Unavailable PROVIDER, UNKNOWN Consulting Unavailable Problems Problem Classification Problem Date Documented Date Episodic/Chronic Acute and unspecified renal failure (2 sources) Acute kidney failure, unspecified; Translations: [Acute kidney failure, unspecified] Onset: 10-29-2023 Episodic Diabetes mellitus with complications (3 sources) Type 2 diabetes mellitus with hyperosmolarity without nonketotic hyperglycemic-hyperos molar coma (NKHHC); Translations: [Type 2 diabetes mellitus with hyperglycemia] Onset: 10-29-2023 Chronic Diabetes mellitus without complication (3 sources) Type 2 diabetes mellitus without complications; Translations: [Type 2 diabetes mellitus without complications] Onset: 12-08-2023 Chronic Disorders of lipid metabolism (1 source) Pure hypercholesterolemia, unspecified; Translations: [Pure hypercholesterolemia, unspecified] Onset: 09-05-2024 Chronic Essential hypertension (1 source) Essential (primary) hypertension; Translations: [Essential (primary) hypertension] Onset: 09-05-2024 Chronic Other screening for suspected conditions (not mental disorders or infectious disease) (3 sources) Encounter for screening for malignant neoplasm of colon; Translations: [Encounter for screening for malignant neoplasm of prostate] Onset: 12-11-2023 Episodic Results Test Name Value Interpretation Reference Range Facility CBC + DIFFon 05-03-2024 Baso # 0.04 x10EE3/UL Normal 0.00 - 0.10 [facility] Comment on above: Performed By: #### 2 25079 #### [place] [address] Basophils/100 WBC (Bld) 0.5 % Normal 0.0 - 2.0 [facility] Comment on above: Performed By: #### 2 14980 #### [place] [address] CBC + DIFF Normal [facility] Comment on above: Result Comment: CBC- COMPLETE BLOOD COUNT Performed By: #### 2 96131 #### [facility],[address] [place] [address] EO # 0.49 x10EE3/UL Normal 0.00 - 0.50 [facility] Comment on above: Performed By: #### 2 42669 #### [facility],[address] [place] [address] 23986 Eosinophils/100 WBC (Bld) 6.3 % Normal 0.0 - 7.0 [facility] Comment on above: Performed By: #### 2 91611 #### [facility],[address] [place] [address] Erythrocyte distribution width (RBC) [Ratio] 13.6 % Normal 12.0 - 15.6 [facility] Comment on above: Performed By: #### 2 59867 #### [facility],[address] [place] [address] Hematocrit (Bld) [Volume fraction] 45.1 % Normal 40.0 - 52.0 [facility] Comment on above: Performed By: #### 2 01794 #### [facility],[address] [place] [address] Hemoglobin (Bld) [Mass/Vol] 15.5 g/dL Normal 13.0 - 17.5 [facility] Comment on above: Performed By: #### 2 96217 #### [facility],[address] [place] [address] 51987 Lymph # 1.40 x10EE3/UL Normal 0.80 - 2.80 [facility] Comment on above: Performed By: #### 2 22264 #### [facility],[address] [place] [address] 75168 Lymphocytes/100 WBC (Bld) 18.0 % Low 20.0 - 45.0 [facility] Comment on above: Performed By: #### 2 96994 #### [facility],[address] [place], [place] [id number] MANUAL DIFF N/A Normal [facility] Comment on above: Performed By: #### 2 62978 #### [facility],[address] [place] [address] MCH (RBC) [Entitic mass] 32 pg Normal 27 - 33 [facility] Comment on above: Performed By: #### 2 67611 #### [facility],[address] [place] [address] MCHC 34 X10 3 Normal 32 - 36 [facility] Comment on above: Performed By: #### 2 73437 #### [place] [address] MCV (RBC) [Entitic vol] 94 fL Normal 81 - 98 [facility] Comment on above: Performed By: #### 2 77861 #### [place] [address] Sevier # 0.65 x10EE3/UL Normal 0.20 - 1.00 [facility] Comment on above: Performed By: #### 2 70945 #### [place] [address] MONOS % 8.4 % Normal 0.0 - 10.0 [facility] Comment on above: Performed By: #### 2 58539 #### [place] [address] Morphology Gur[place] (Bld) [Interp] N/A Normal [facility] Comment on above: Performed By: #### 2 87015 #### [place] [address] Neut # 5.19 x10EE3/UL Normal 1.50 - 7.10 [facility] Comment on above: Performed By: #### 2 52017 #### [place] [address] Neutrophils/100 WBC (Bld) 66.9 % Normal 46.0 - 76.0 [facility] Comment on above: Performed By: #### 2 26225 #### [place] [address] PLATELET 182 x10EE3/UL Normal 150 - 450 [facility] Comment on above: Performed By: #### 2 33617 #### [facility],[address] [place] [address] 71227 Platelet mean volume (Bld) [Entitic vol] 8.2 fL Normal 6.4 - 10.5 [facility] Comment on above: Result Comment: AUTO MATED DIFFERENTIAL Performed By: #### 2 68510 #### [facility],[address] [place] [address] 75672 RBC 4.82 x 10EE6/UL Normal 4.50 - 6.00 [facility] Comment on above: Performed By: #### 2 94284 #### [facility],[address] [place] [address] 30089 WBC 7.8 x 10EE3/UL Normal 4.5 - 10.8 [facility] Comment on above: Performed By: #### 2 31599 #### [facility],[address] [place] [address] 06709 CMP with eGFRon 05-03-2024 AGE 78 years Normal [facility] Comment on above: Performed By: #### 2 31242 #### [facility],[address] [place] [address] 16628 Albumin [Mass/Vol] 3.8 g/dL Normal 3.4 - 5.0 [facility] Comment on above: Performed By: #### 2 11446 #### [facility],[address] [place] [address] 77981 Albumin/Globulin [Mass ratio] 1.1 {ratio} Normal 0.9 - 1.6 [facility] Comment on above: Performed By: #### 2 10741 #### [facility],[address] [place] [address] 65153 ALK PHOS 45 U/L Low 46 - 116 [facility] Comment on above: Performed By: #### 2 51934 #### [facility],[address] [place] [address] 95858 ALT [Catalytic activity/Vol] 35 U/L Normal 16 - 63 [facility] Comment on above: Performed By: #### 2 41774 #### [facility],[address] [place] [address] 17518 Anion gap [Moles/Vol] 12 mmol/L Normal 10 - 20 [facility] Comment on above: Performed By: #### 2 44989 #### [facility],[address] [place] [address] 26173 AST [Catalytic activity/Vol] 24 U/L Normal 15 - 37 [facility] Comment on above: Performed By: #### 2 70999 #### [facility],[address] [place] [address] 00793 B/C RATIO 18 ratio Normal 0 - 30 [facility] Comment on above: Performed By: #### 2 80388 #### [facility],[address] [place] [address] 89695 Bilirubin [Mass/Vol] 1.1 mg/dL High 0.2 - 1.0 [facility] Comment on above: Performed By: #### 2 31765 #### [facility],[address] [place] [address] 04832 Calcium [Mass/Vol] 9.2 mg/dL Normal 8.5 - 10.1 [facility] Comment on above: Performed By: #### 2 90616 #### [facility],[address] [place] [address] 10692 Chloride [Moles/Vol] 104 mmol/L Normal 98 - 107 [facility] Comment on above: Performed By: #### 2 26007 #### [facility],[address] [place] [address] 60832 CMP with eGFR Normal [facility] Comment on above: Result Comment: COMP REHENSIVE METABOLIC PANEL Performed By: #### 2 58490 #### [facility],[address] [place] [address] 33394 CO2 [Moles/Vol] 30.9 mmol/L Normal 21.0 - 32.0 [facility] Comment on above: Performed By: #### 2 79749 #### [facility],[address] [place] [address] 72500 Creatinine [Mass/Vol] 1.13 mg/dL Normal 0.70 - 1.30 [facility] Comment on above: Performed By: #### 2 11605 #### [facility],[address] [place] [address] 60891 GFR/1.73 sq M.predicted among non-blacks MDRD (S/P/Bld) [Vol rate/Area] mL/min/{1.73_m2} Normal 60 - 999 [facility] Comment on above: Performed By: #### 2 87132 #### [facility],[address] [place] [address] 24267 Result Comment: ACCO RDING TO THE NATIONAL KIDNEY DISEASE EDUCATION PROGRAM(NKDE), A NORMAL eGFR IS A VALUE GREATER THAN OR EQUAL TO 60 ML/MIN/1.73 SQ METERS. CHRONIC KIDNEY DISEASE: <60mL/MIN/1.73 SQ METERS KIDNEY FAILURE: <15mL/MIN/1.73 SQ METERS THIS TEST SHOULD ONLY BE USED FOR PATIENTS 18 YEARS OF AGE AND OLDER. Globulin (S) [Mass/Vol] 3.4 g/dL Normal 1.5 - 3.8 [facility] Comment on above: Performed By: #### 2 28298 #### [facility],[address] [place] [address] 57757 Glucose [Mass/Vol] 131 mg/dL High 74 - 106 [facility] Comment on above: Performed By: #### 2 27943 #### [facility],[address] [place] [address] 69415 Potassium [Moles/Vol] 4.1 mmol/L Normal 3.5 - 5.1 [facility] Comment on above: Performed By: #### 2 68425 #### [facility],[address] [place] [address] 18806 Protein [Mass/Vol] 7.2 g/dL Normal 6.4 - 8.2 [facility] Comment on above: Performed By: #### 2 76368 #### [facility],[address] [place] [address] 61847 Sodium [Moles/Vol] 143 mmol/L Normal 136 - 145 [facility] Comment on above: Performed By: #### 2 95505 #### [facility],[address] [place] [address] 98438 Urea nitrogen [Mass/Vol] 20 mg/dL High 7 - 18 [facility] Comment on above: Performed By: #### 2 84367 #### [facility],[address] [place] [address] 49204 HEMOGLOBIN A1C (POM)on 05-03 Glucose [Mass/Vol] 157.1 mg/dL High 0.0 - 0.0 [facility] Comment on above: Result Comment: BLDo HEMOGLOBIN A1C REFERENCE RANGESBLDo Suggested Diagnosis HbA1c(%) HbA1C (mmol/mol Diabetic >/=6.5 >/=48 Prediabetes 5.7 - 6.4 39 - 47 Normal <5.7 <39 Performed By: #### 2 43137 #### [facility],[address] [place] [address] 21186 HbA1c (Bld) [Mass fraction] 7.1 % High 0.0 - 6.5 [facility] Comment on above: Performed By: #### 2 94449 #### [facility],[address] [place] [address] 93641 LIPID PROFILEon 05-03-2024 Cholesterol [Mass/Vol] 183 mg/dL Normal 0 - 240 [facility] Comment on above: Performed By: #### 2 80677 #### [facility],[address] [place] [address] 25512 Cholesterol in HDL [Mass/Vol] 54 mg/dL Normal 40 - 60 [facility] Comment on above: Performed By: #### 2 88454 #### [facility],[address] [place] [address] Cholesterol in LDL [Mass/Vol] 113 mg/dL Normal 0 - 129 [facility] Comment on above: Performed By: #### 2 54950 #### [facility],[address] [place] [address] Cholesterol.total/ Cholesterol in HDL [Mass ratio] 3.4 {ratio} Normal 0.0 - 5.0 [facility] Comment on above: Performed By: #### 2 77852 #### [facility],[address] [place] [address] Lipid 1996 panel Normal [facility] Comment on above: Result Comment: LIPI D PROFILE Performed By: #### 2 68400 #### [facility],[address] [place] [address] Triglyceride [Mass/Vol] 80 mg/dL Normal 0 - 150 [facility] Comment on above: Performed By: #### 2 49787 #### [facility],[address] [place] [address] TSHon 05-03-2024 TSH Qn 2.89 m[IU]/L Normal 0.35 - 3.74 [facility] Comment on above: Performed By: #### 2 51360 #### [facility],[address] [place] [address] URINE MICROALBUMIN W/CREATIN INE, RANDOMon 05-03-2024 CREATININE UR 148.12 mg/dl Normal [facility] Comment on above: Performed By: #### 2 36583 #### [facility],[address] [place], [place] [address] MICROALBUMIN UR 21.4 mg/dL Normal 0.1 - 25.1 [facility] Comment on above: Result Comment: MARTI MAYORGA DILUTED Performed By: #### 2 02125 #### [facility],[address] [place] [address] 37466 UACR 144 mg/g Normal [facility] Comment on above: Performed By: #### 2 89516 #### [facility],[address] [place] [address] 04372 VITAMIN D, 25 HYDROXYon - VitD 80.80 ng/mL Normal 30.00 - 100 [facility] [place] Comment on above: Result Comment: 25-O HD3 indicates both endogenous production and supplementation. 25-OHD2 is an indicator of exogenous sources, such as diet or supplementation. Therapy is based on measurement of Total 25-OHD, with levels <20 ng/mL indicative of Vitamin D deficiency, while levels between 20 ng/mL and 30 ng/mL suggest insufficiency. Optimal levels are >=30ng/mL. Vitamin D, 25-OH D3 Not Established Vitamin D, 25-OH D2 Not Established Performed By: #### 2 15578 #### [facility],[address] [place] [address] 49890 HEMOGLOBIN A1C (POM)on 02-07 Glucose [Mass/Vol] 188.6 mg/dL High 0.0 - 0.0 [facility] Comment on above: Result Comment: BLDo HEMOGLOBIN A1C REFERENCE RANGESBLDo Suggested Diagnosis HbA1c(%) HbA1C (mmol/mol Diabetic >/=6.5 >/=48 Prediabetes 5.7 - 6.4 39 - 47 Normal <5.7 <39 Performed By: #### 2 37296 #### [facility],[address] [place] [address] 69653 HbA1c (Bld) [Mass fraction] 8.2 % High 0.0 - 6.5 [facility] Comment on above: Performed By: #### 2 86983 #### [facility],[address] [place] [address] 97633 FITon 12-17-2023 Lower GI hemoglobin IA Ql (Stl) Negative Normal Negative [facility] ([place]) Comment on above: Performed By: #### F IT #### [address] [address] CMP with eGFRon 12-08-2023 AGE 78 years Normal [facility] Comment on above: Performed By: #### 2 28556 #### [facility],[address] [place] [address] 18973 Albumin [Mass/Vol] 3.5 g/dL Normal 3.4 - 5.0 [facility] Comment on above: Performed By: #### 2 99744 #### [facility],[address] [place] [address] 31101 Albumin/Globulin [Mass ratio] 1.0 {ratio} Normal 0.9 - 1.6 [facility] Comment on above: Performed By: #### 2 27024 #### [facility],[address] [place] [address] 88094 ALK PHOS 56 U/L Normal 46 - 116 [facility] Comment on above: Performed By: #### 2 73857 #### [facility],[address] [place] [address] 96033 ALT [Catalytic activity/Vol] 42 U/L Normal 16 - 63 [facility] Comment on above: Performed By: #### 2 76229 #### [facility],[address] [place] [address] 10349 Anion gap [Moles/Vol] 11 mmol/L Normal 10 - 20 [facility] Comment on above: Performed By: #### 2 70454 #### [facility],[address] [place] [address] 56346 AST [Catalytic activity/Vol] 24 U/L Normal 15 - 37 [facility] Comment on above: Performed By: #### 2 39684 #### [facility],[address] [place] [address] 73341 B/C RATIO 18 ratio Normal 0 - 30 [facility] Comment on above: Performed By: #### 2 63504 #### [facility],[address] [place] [address] 62454 Bilirubin [Mass/Vol] 0.9 mg/dL Normal 0.2 - 1.0 [facility] Comment on above: Performed By: #### 2 31462 #### [facility],[address] [place] [address] Calcium [Mass/Vol] 9.0 mg/dL Normal 8.5 - 10.1 [facility] Comment on above: Performed By: #### 2 43205 #### [facility],[address] [place] [address] Chloride [Moles/Vol] 103 mmol/L Normal 98 - 107 [facility] Comment on above: Performed By: #### 2 01621 #### [facility],[address] [place] [address] CMP with eGFR Normal [facility] Comment on above: Result Comment: COMP REHENSIVE METABOLIC PANEL Performed By: #### 2 29788 #### [facility],[address] [place] [address] CO2 [Moles/Vol] 26.9 mmol/L Normal 21.0 - 32.0 [facility] Comment on above: Performed By: #### 2 19455 #### [facility],[address] [place] [address] Creatinine [Mass/Vol] 1.07 mg/dL Normal 0.70 - 1.30 [facility] Comment on above: Performed By: #### 2 13786 #### [facility],[address] [place] [address] GFR/1.73 sq M.predicted among non-blacks MDRD (S/P/Bld) [Vol rate/Area] mL/min/{1.73_m2} Normal 60 - 999 [facility] Comment on above: Performed By: #### 2 57641 #### [facility],[address] [place] [address] Result Comment: ACCO RDING TO THE NATIONAL KIDNEY DISEASE EDUCATION PROGRAM(NKDE), A NORMAL eGFR IS A VALUE GREATER THAN OR EQUAL TO 60 ML/MIN/1.73 SQ METERS. CHRONIC KIDNEY DISEASE: <60mL/MIN/1.73 SQ METERS KIDNEY FAILURE: <15mL/MIN/1.73 SQ METERS THIS TEST SHOULD ONLY BE USED FOR PATIENTS 18 YEARS OF AGE AND OLDER. Globulin (S) [Mass/Vol] 3.4 g/dL Normal 1.5 - 3.8 [facility] Comment on above: Performed By: #### 2 55054 #### [facility],[address] [place] [address] Glucose [Mass/Vol] 218 mg/dL High 74 - 106 [facility] Comment on above: Performed By: #### 2 91670 #### [place] [id number] Potassium [Moles/Vol] 4.2 mmol/L Normal 3.5 - 5.1 [facility] Comment on above: Performed By: #### 2 82185 #### [facility],[address] [place] [address] 75331 Protein [Mass/Vol] 6.9 g/dL Normal 6.4 - 8.2 [facility] Comment on above: Performed By: #### 2 02450 #### [facility],[address] [place], [place] [address] Sodium [Moles/Vol] 137 mmol/L Normal 136 - 145 [facility] Comment on above: Performed By: #### 2 27086 #### [facility],[address] [place] [address] 36439 Urea nitrogen [Mass/Vol] 19 mg/dL High 7 - 18 [facility] Comment on above: Performed By: #### 2 97174 #### [address] [address] HEMOGLOBIN A1C (POM)on 12-07 Glucose [Mass/Vol] 300.6 mg/dL High 0.0 - 0.0 [facility] Comment on above: Result Comment: BLDo HEMOGLOBIN A1C REFERENCE RANGESBLDo Suggested Diagnosis HbA1c(%) HbA1C (mmol/mol Diabetic >/=6.5 >/=48 Prediabetes 5.7 - 6.4 39 - 47 Normal <5.7 <39 Performed By: #### 2 58365 #### [facility],[address] [place] [address] 53307 HbA1c (Bld) [Mass fraction] 12.1 % High 0.0 - 6.5 [facility] Comment on above: Performed By: #### 2 13063 #### [facility],[address] [place] [address] 53394 LIPID PROFILEon 12-08-2023 Cholesterol [Mass/Vol] 165 mg/dL Normal 0 - 240 [facility] Comment on above: Performed By: #### 2 30135 #### [facility],[address] [place], [place] [address] Cholesterol in HDL [Mass/Vol] 51 mg/dL Normal 40 - 60 [facility] Comment on above: Performed By: #### 2 08073 #### [facility],[address] [place] [address] 38682 Cholesterol in LDL [Mass/Vol] 103 mg/dL Normal 0 - 129 [facility] Comment on above: Performed By: #### 2 06030 #### [facility],[address] [place] [address] 98224 Cholesterol.total/ Cholesterol in HDL [Mass ratio] 3.2 {ratio} Normal 0.0 - 5.0 [facility] Comment on above: Performed By: #### 2 47239 #### [facility],[address] [place] [address] 79499 Lipid 1996 panel Normal [facility] Comment on above: Result Comment: LIPI D PROFILE Performed By: #### 2 29049 #### [facility],[address] [place] [address] 59605 Triglyceride [Mass/Vol] 53 mg/dL Normal 0 - 150 [facility] Comment on above: Performed By: #### 2 92427 #### [facility],[address] [place] [address] 92872 TSHon 12-08-2023 TSH Qn 2.23 m[IU]/L Normal 0.35 - 3.74 [facility] Comment on above: Performed By: #### 2 69684 #### [facility],[address] [place] [address] 06699 URINE MICROALBUMIN W/CREATIN INE, RANDOMon 12-08-2023 CREATININE UR 81.76 mg/dl Normal [facility] Comment on above: Performed By: #### 2 88558 #### [facility],[address] [place] [address] 57692 MICROALBUMIN UR 8.9 mg/dL Normal 0.1 - 25.1 [facility] Comment on above: Performed By: #### 2 96665 #### [facility],[address] [place] [address] 57970 UACR 109 mg/g Normal [facility] Comment on above: Performed By: #### 2 48234 #### [facility],[address] [place] [address] 96670 Basic Metabolic Profile (BMP )on 10-29-2023 BUN/CRE 13.2 RATIO Normal 10-20 [facility] Comment on above: Performed By: #### L 500.2500 #### [facility] [address] [place], [address] CA,Total 9.0 mg/dL Normal 8.5-10.1 [facility] Comment on above: Performed By: #### L 500.2500 #### [facility] [address] [place], [address] Chloride [Moles/Vol] 103 mmol/L Normal 98-107 [facility] Comment on above: Performed By: #### L 500.2500 #### [facility] [address] [place], [address] CO2 [Moles/Vol] 27.0 mmol/L Normal 21.0-32.0 [facility] Comment on above: Performed By: #### L 500.2500 #### [facility] [address] [place], [address] Creatinine [Mass/Vol] 1.06 mg/dL Normal 0.70-1.30 [facility] Comment on above: Result Comment: The validity of the calculated GFR GFRAA in patients over 70 years has not been determined. Clinical correlation is essential. Performed By: #### L 500.2500 #### [facility] [address] [place], [address] ECRCL 54.91 ml/min Normal [facility] Comment on above: Performed By: #### L 500.2500 #### [facility] [address] [place], [address] EST GFR - AA 87 mL/min Normal >60 [facility] Comment on above: Result Comment: Afri can Trinidadian GFR Calc Performed By: #### L 500.2500 #### [facility] [address] [place], [address] GAP 4 Low 5-15 [facility] Comment on above: Performed By: #### L 500.2500 #### [facility] [address] [place], [address] GFR/1.73 sq M.predicted among non-blacks MDRD (S/P/Bld) [Vol rate/Area] 72 mL/min/{1.73_m2} Normal >60 [facility] Comment on above: Result Comment: Non- GFR Calc Performed By: #### L 500.2500 #### [facility] [address] [place], [address] Glucose [Mass/Vol] 277 mg/dL High 74-106 [facility] Comment on above: Result Comment: Gluc ose result greater than or equal to 200 mg/dL suggests DIABETES MELLITUS per A.D.A. criteria. Performed By: #### L 500.2500 #### [facility] [address] [place], [address] Potassium [Moles/Vol] 3.5 mmol/L Normal 3.5-5.1 [facility] Comment on above: Performed By: #### L 500.2500 #### [facility] [address] [place], [address] Sodium [Moles/Vol] 134 mmol/L Low 136-145 [facility] Comment on above: Performed By: #### L 500.2500 #### [facility] [address] [place], [address] Urea nitrogen [Mass/Vol] 14 mg/dL Normal 7-18 [facility] Comment on above: Performed By: #### L 500.2500 #### [facility] [address] [place], [address] Bedside Glucoseon 10-29-2023 FINGERSTICK GLU 267 mg/dL High 74-106 [facility] Comment on above: Result Comment: HAMIDA GEMENT OF PATIENT CARE PER NURSING PROTOCOL Performed By: #### L 501.7400 #### [facility] [address] [place], [address] FINGERSTICK GLU 264 mg/dL High 74-106 [facility] Comment on above: Result Comment: HAMIDA GEMENT OF PATIENT CARE PER NURSING PROTOCOL Performed By: #### L 501.080 #### [facility] [address] [place], [address] Hemoglobin A1con 10-29-2023 HbA1c (Bld) [Mass fraction] 12.3 % High 3.8-5.6 [facility] Comment on above: Result Comment: Norm al < 5.7 % Prediabetic 5.7 - 6.4 % Diabetic >or= 6.5 % Please note range changes. Performed By: #### L 501.7400 #### [facility] [address] [place], [address] Acetone Serumon 10-28-2023 ACETONE SERUM Negative Normal NEG [facility] Comment on above: Performed By: #### L 501.6900 #### [facility] [address] [place], [address] Bedside Glucoseon 10-28-2023 FINGERSTICK GLU 176 mg/dL High [address] [place] [address] Comment on above: Result Comment: HAMIDA GEMENT OF PATIENT CARE PER NURSING PROTOCOL Performed By: #### L 501.7400 #### [facility] [address] [place], [address] FINGERSTICK GLU 149 mg/dL High [address] [place] [address] Comment on above: Result Comment: HAMIDA GEMENT OF PATIENT CARE PER NURSING PROTOCOL Performed By: #### L 501.7400 #### [facility] [address] [place], [address] FINGERSTICK GLU 229 mg/dL High [address] [place] [address] Comment on above: Result Comment: HAMIDA GEMENT OF PATIENT CARE PER NURSING PROTOCOL Performed By: #### L 501.7400 #### [facility] [address] [place], [address] FINGERSTICK GLU 474 mg/dL Invalid Interpretation Code [address] [place] [address] Comment on above: Result Comment: HAMIDA GEMENT OF PATIENT CARE PER NURSING PROTOCOL Performed By: #### L 501.080 #### [facility] [address] [place], [address] FINGERSTICK GLU > 500 Invalid Interpretation Code [address] [place] [address] Comment on above: Result Comment: Dr Dee Dee harden Followed MANAGEMENT OF PATIENT CARE PER NURSING PROTOCOL Performed By: #### L 501.080 #### [facility] [address] [place], [address] CBC W/Diff, Automatedon 07- Absolute Lymph 1.02 X10 3/uL Normal 0.83-4.51 [facility] Comment on above: Performed By: #### L 100.0100, L500.4050 #### [facility] [address] [place], [address] Absolute Neut 6.0 X10 3/uL Normal 2.0-7.7 [facility] Comment on above: Performed By: #### L 100.0100, L500.4050 #### [facility] [address] [place], [address] Basophils/100 WBC (Bld) 0.8 % Normal 0-1 [facility] Comment on above: Performed By: #### L 100.0100, L500.4050 #### [facility] [address] [place], [address] Eosinophils/100 WBC (Bld) 2.2 % Normal 0-5 [facility] Comment on above: Performed By: #### L 100.0100, L500.4050 #### [facility] [address] [place], [address] Erythrocyte distribution width (RBC) [Ratio] 12.1 % Normal 11.6-14.6 [facility] Comment on above: Performed By: #### L 100.0100, L500.4050 #### [facility] [address] [place], [address] Hematocrit (Bld) [Volume fraction] 41.6 % Normal 40-54 [facility] Comment on above: Performed By: #### L 100.0100, L500.4050 #### [facility] [address] [place], [address] Hemoglobin (Bld) [Mass/Vol] 14.4 g/dL Normal 13.0-16.5 [facility] Comment on above: Performed By: #### L 100.0100, L500.4050 #### [facility] [address] [place], [address] IG% 0.300 Normal 0.0-0.9 [facility] Comment on above: Result Comment: IG% - Immature Granulocytes (promyelocytes, myelocytes and metamyelocytes) > 1% indicates that a LEFT SHIFT is Present. Performed By: #### L 100.0100, L500.4050 #### [facility] [address] [place], [address] Lymphocytes/100 WBC (Bld) 13.1 % Low 19-41 [facility] Comment on above: Performed By: #### L 100.0100, L500.4050 #### [facility] [address] [place], [id number] MCH (RBC) [Entitic mass] 31.6 pg Normal 27.0-32.0 [facility] Comment on above: Performed By: #### L 100.0100, L500.4050 #### [facility] [address] [place], [address] MCHC (RBC) [Mass/Vol] 34.6 g/dL Normal 32-36 [facility] Comment on above: Performed By: #### L 100.0100, L500.4050 #### [facility] [address] [place], [address] MCV (RBC) [Entitic vol] 91.2 fL Normal 80-94 [facility] Comment on above: Performed By: #### L 100.0100, L500.4050 #### [facility] [address] [place], [address] Monocytes/100 WBC (Bld) 6.4 % Normal 0-10 [facility] Comment on above: Performed By: #### L 100.0100, L500.4050 #### [facility] [address] [place], [address] Neutrophils/100 WBC (Bld) 77.2 % High 47-70 [facility] Comment on above: Performed By: #### L 100.0100, L500.4050 #### [facility] [address] [place], [address] Nucleated RBC (Bld) [#/Vol] 0 10*3/uL Normal 0-5 [facility] Comment on above: Performed By: #### L 100.0100, L500.4050 #### [facility] [address] [place], [address] Platelet mean volume (Bld) [Entitic vol] 10.9 fL Normal 6.2-12.0 [facility] Comment on above: Performed By: #### L 100.0100, L500.4050 #### [facility] [address] [place], [address] Platelets (Bld) [#/Vol] 228 10*3/uL Normal 150-450 [facility] Comment on above: Performed By: #### L 100.0100, L500.4050 #### [facility] [address] [place], [address] RBC (Bld) [#/Vol] 4.56 10*6/uL Low 4.6-6.2 [facility] Comment on above: Performed By: #### L 100.0100, L500.4050 #### [facility] [address] [place], [address] RDW SD 40.1 fl Normal 35.1-43.9 [facility] Comment on above: Performed By: #### L 100.0100, L500.4050 #### [facility] [address] [place], [address] WBC (Bld) [#/Vol] 7.8 10*3/uL Normal 4.4-11.0 [facility] Comment on above: Performed By: #### L 100.0100, L500.4050 #### [facility] [address] [place], [address] Comprehensive Metabolic Prof ilon 10-28-2023 Albumin [Mass/Vol] 3.7 g/dL Normal 3.2-5.0 [facility] Comment on above: Performed By: #### L 100.0100, L500.4050 #### [facility] [address] [place], [address] Albumin/Globulin [Mass ratio] 1.0 {ratio} Normal 0.9-2.4 [facility] Comment on above: Performed By: #### L 100.0100, L500.4050 #### [facility] [address] [place], [address] ALK P 68 U/L Normal 45-117 [facility] Comment on above: Performed By: #### L 100.0100, L500.4050 #### [facility] [address] [place], [address] ALT [Catalytic activity/Vol] 25 U/L Normal 16-61 [facility] Comment on above: Performed By: #### L 100.0100, L500.4050 #### [facility] [address] [place], [address] AST [Catalytic activity/Vol] 12 U/L Low 15-37 [facility] Comment on above: Performed By: #### L 100.0100, L500.4050 #### [facility] [address] [place], [address] Bilirubin [Mass/Vol] 1.30 mg/dL High 0.20-1.00 [facility] Comment on above: Result Comment: For patients on eltrombopag therapy, use of Dimension [place] TBIL is not recommended. Performed By: #### L 100.0100, L500.4050 #### [facility] [address] [place], [address] BUN/CRE 14.0 RATIO Normal 10-20 [facility] Comment on above: Performed By: #### L 100.0100, L500.4050 #### [facility] [address] [place], [address] CA,Total 9.7 mg/dL Normal 8.5-10.1 [facility] Comment on above: Performed By: #### L 100.0100, L500.4050 #### [facility] [address] [place], [address] Chloride [Moles/Vol] 92 mmol/L Low 98-107 [facility] Comment on above: Performed By: #### L 100.0100, L500.4050 #### [facility] [address] [place], [address] CO2 [Moles/Vol] 27.0 mmol/L Normal 21.0-32.0 [facility] Comment on above: Performed By: #### L 100.0100, L500.4050 #### [facility] [address] [place], [address] Creatinine [Mass/Vol] 1.57 mg/dL High 0.70-1.30 [facility] Comment on above: Result Comment: The validity of the calculated GFR GFRAA in patients over 70 years has not been determined. Clinical correlation is essential. Performed By: #### L 100.0100, L500.4050 #### [facility] [address] [place], [address] EST GFR - AA 56 mL/min Low >60 [facility] Comment on above: Result Comment: Afri can Trinidadian GFR Calc Performed By: #### L 100.0100, L500.4050 #### [facility] [address] [place], [address] GAP 6 Normal 5-15 [facility] Comment on above: Performed By: #### L 100.0100, L500.4050 #### [facility] [address] [place], [address] GFR/1.73 sq M.predicted among non-blacks MDRD (S/P/Bld) [Vol rate/Area] 46 mL/min/{1.73_m2} Low >60 [facility] Comment on above: Result Comment: Non- GFR Calc Performed By: #### L 100.0100, L500.4050 #### [facility] [address] [place], [address] Globulin (S) [Mass/Vol] 3.6 g/dL Normal 2.2-4.2 [facility] Comment on above: Performed By: #### L 100.0100, L500.4050 #### [facility] [address] [place], [address] Glucose [Mass/Vol] 729 mg/dL Invalid Interpretation Code 74-106 [facility] Comment on above: Result Comment: Crit ical Result(s) Called at: 12:18:10 10/28/2023 by: BELÉN CHOPRA to Candelaria Gudino. Results read back by same. Glucose result greater than or equal to 200 mg/dL suggests DIABETES MELLITUS per A.D.A. criteria. Performed By: #### L 100.0100, L500.4050 #### [facility] [address] [place], [address] Potassium [Moles/Vol] 5.2 mmol/L High 3.5-5.1 [facility] Comment on above: Performed By: #### L 100.0100, L500.4050 #### [facility] [address] [place], [address] Sodium [Moles/Vol] 125 mmol/L Low 136-145 [facility] Comment on above: Performed By: #### L 100.0100, L500.4050 #### [facility] [address] [place], [address] T PROT 7.3 g/dL Normal 6.4-8.2 [facility] Comment on above: Performed By: #### L 100.0100, L500.4050 #### [facility] [address] [place], [address] Urea nitrogen [Mass/Vol] 22 mg/dL High 7-18 [facility] Comment on above: Performed By: #### L 100.0100, L500.4050 #### [facility] [address] [place], [address] Emergency Department Summary on 10-28-2023 Emergency Department Summary [facility] Medical Records Department [address] [place] [address] Emergency Department Summary 10/28/23 MR#: [id number] Acct: [id number] Name: FRANK NOBLE Rep #: [id number] : 1945 78 From: Kamini BUCKNER PCP: Dr. Castillo Ramirez MD Status:ADM FOX Location: [address] History of Present Illness Chief Complaint: Hyperglycemia Narrative Narrative: 78 old male with past medical history of type 2 diabetes states has had 2 weeks of dry mouth, increased thirst, fatigue and increased urination. He thinks his sugars might be running high but he does not check it at home. He has been on metformin 1000 twice a day for years. No insulin. He states he eats a lot of sweets. He has never been hospitalized for hyperglycemia or had DKA to his knowledge. He has no fever, chills, cough, abdominal pain or vomiting or diarrhea. [facility] Medical History HLD (hyperlipidemia) Diabetes Hypertension Home Medications ???Medication ???Instructions ???Recorded ???Last Taken ???Type atenolol 25 mg tablet 25 mg PO DAILY 10/28/23 10/28/23 History metformin 1,000 mg tablet 1,000 mg PO BID 10/28/23 10/28/23 History pantoprazole 20 mg tablet,delayed 20 mg PO DAILY 10/28/23 10/28/23 History release pioglitazone 15 mg tablet 15 mg PO DAILY 10/28/23 10/28/23 History rosuvastatin 40 mg tablet 40 mg PO QPM 10/28/23 10/27/23 History Allergy/AdvReac Type Severity Reaction Status Date / Time No Known Allergies Allergy Verified 10/28/23 11:28 Social History Smoking Status: Former smoker ROS ROS ED ROS Narrative Constitutional: Negative for fever, chills. CVS: Negative for chest pain Respiratory: Negative for shortness of breath. GI: Negative for abdominal pain, nausea, vomiting. EXAM Physical Exam Narrative Exam Narrative: CONST: Patient sitting in no acute distress. EYES: Normal inspection. ENT: Normal inspection, slightly dry mucous membranes. NECK: Normal inspection. RESP: No respiratory distress, CTAB. CVS: Regular rate and rhythm, no murmur, no gallop. ABD: Soft and nontender, no guarding or rebound, nondistended. SKIN: Color normal, no rash, warm, dry, intact. EXTREMITIES: Normal appearance, no pedal edema. NEURO: Alert and answering questions appropriately. PSYCH: Normal affect. Const Vital Signs: 10/28/23 11:28 10/28/23 11:59 10/28/23 13:08 Temperature 96.8 F L Temperature Source Temporal Pulse Rate 62 64 Respiratory Rate 16 16 Respiratory Effort Normal Non-Labored Respiratory Pattern Normal Blood Pressure 115/79 134/80 H Blood Pressure Mean 91 98 Pulse Ox 96 96 Oxygen Delivery Method Room Air Room Air 10/28/23 14:58 Temperature Temperature Source Pulse Rate 60 Respiratory Rate 18 Respiratory Effort Respiratory Pattern Blood Pressure 134/80 H Blood Pressure Mean 98 Pulse Ox 97 Oxygen Delivery Method Room Air Physical Exam Const Vital Signs: 10/28/23 11:28 10/28/23 11:59 10/28/23 13:08 Temperature 96.8 F L Temperature Source Temporal Pulse Rate 62 64 Respiratory Rate 16 16 Respiratory Effort Normal Non-Labored Respiratory Pattern Normal Blood Pressure 115/79 134/80 H Blood Pressure Mean 91 98 Pulse Ox 96 96 Oxygen Delivery Method Room Air Room Air 10/28/23 14:58 Temperature Temperature Source Pulse Rate 60 Respiratory Rate 18 Respiratory Effort Respiratory Pattern Blood Pressure 134/80 H Blood Pressure Mean 98 Pulse Ox 97 Oxygen Delivery Method Room Air MDM MDM MDM Narrative Medical decision making narrative: 78-year-old male with past medical history of type 2 diabetes on metformin presents with 2 weeks of fatigue, polydipsia and polyuria. He appears well and nontoxic. Vital signs stable. He has mildly dry mucous membranes with an otherwise benign exam. Blood glucose is 729 with normal CO2 and anion gap. Ketones negative. He has pseudohyponatremia at 125 with corrected sodium of 135, potassium 5.2, creatinine 1.57. Outside records on 03/05/2023 showed a CMP with normal creatinine of 1.06 so this is consistent with RAJENDRA. Blood gas shows normal pH of 7.363. This is consistent with diabetic hyperglycemia without DKA. After 2 L of IV fluids blood sugar is 474. I spoke with the hospitalist and Dr. Her recommended ordering Humalog 15 units and admission to [facility] for observation. Patient was agreeable with this plan. Lab Data Attestation: I reviewed the patient's lab results. Labs: Laboratory Results - last 24 hr 10/28/23 10/28/23 10/28/23 11:34 11:40 12:10 WBC 7.8 RBC 4.56 L Hgb 1 (more content not included)... Normal [facility] H AND P Exam - [facility] 10-28-2023 H&P Exam - Hospitalist [facility] Medical Records Department [address] [place] [address] H P Exam - Hospitalist 10/28/23 1518 MR#: [id number] Acct: [id number] Name: FRANK NOBLE Rep #: [id number] : 1945 78 From: Víctor Her MD PCP: Dr. Castillo Ramirez MD Status:REG ER Location: ED HPI - General General Date of Admission: 10/28/23 Date of Service: 10/28/23 Chief Complaint: Hypoglycemia with polyuria and polydipsia. HPI Narrative FRANK NOBLE, is a 78 M with history of known diabetes mellitus type 2 for many years came to ED with symptoms of generalized weakness, fatigue not feeling well for last 3 to 4 days. He says that he is having polyuria, polydipsia, and fatigue. Besides that, he denies any chest pain shortness of breath, fever, URI symptoms. Denies burning micturition. In ED, patient finger Accu-Chek was found very high and glucose in BMP was 729. Patient had 2 L of IV fluid normal saline bolus and then 15 units lispro insulin given. Patient is on oral hypoglycemic agents at home including metformin and pioglitazone. [facility] Medical History HLD (hyperlipidemia) Diabetes Hypertension Home Medications ???Medication ???Instructions ???Recorded ???Last Taken ???Type atenolol 25 mg tablet 25 mg PO DAILY 10/28/23 10/28/23 History metformin 1,000 mg tablet 1,000 mg PO BID 10/28/23 10/28/23 History pantoprazole 20 mg tablet,delayed 20 mg PO DAILY 10/28/23 10/28/23 History release pioglitazone 15 mg tablet 15 mg PO DAILY 10/28/23 10/28/23 History rosuvastatin 40 mg tablet 40 mg PO QPM 10/28/23 10/27/23 History Allergy/AdvReac Type Severity Reaction Status Date / Time No Known Allergies Allergy Verified 10/28/23 11:28 Social History Smoking Status: Former smoker ROS ROS Narrative Constitutional: Reports fatigue and weakness. No fever. HEENT: Reports systems reviewed and no addt'l complaints, except as documented Respiratory/Chest: No acute shortness of breath or respiratory distress or wheezing. CVS: Denies chest pain pressure or tightness Gastrointestinal: Denies coffee ground emesis, hematemesis or vomiting Genitourinary: Denies burning urination or new urinary tract symptoms Musculoskeletal: Denies acute joint pain or limited range of motion. No acute injury Neurologic: Denies seizure-like symptoms. skin: No ulcer. No rash Endocrinology: DM type II. Reports systems reviewed and no addt'l complaints, except as documented Hematologic/Lymphatic: Reports systems reviewed and no addt'l complaints, except as documented Rest 14 ROS are negative except as mentioned in HPI Vital Signs Vital Signs Vital Signs: 10/28/23 11:28 10/28/23 11:59 10/28/23 13:08 Temperature 96.8 F L Temperature Source Temporal Pulse Rate 62 64 Respiratory Rate 16 16 Respiratory Effort Normal Non-Labored Respiratory Pattern Normal Blood Pressure 115/79 134/80 H Blood Pressure Mean 91 98 Pulse Ox 96 96 Oxygen Delivery Method Room Air Room Air 10/28/23 14:58 Temperature Temperature Source Pulse Rate 60 Respiratory Rate 18 Respiratory Effort Respiratory Pattern Blood Pressure 134/80 H Blood Pressure Mean 98 Pulse Ox 97 Oxygen Delivery Method Room Air Physical Exam Narrative General: Alert, Oriented x3, Cooperative HEENT: Atraumatic, PERRLA, EOMI, Normocephalic Oral: Oral mucosa dry. No Gingival or Mucosal Lesions/ Ulcerations Neck: Supple, No JVD, Negative Carotid Bruits Chest wall/Lungs: Air entry diminished in bilateral lung bases. No crepitation/rhonchi Cardiovascular: Regular rate, Regular Rhythm, Normal S1, Normal S2, No M/G/R Abdomen: Bowel Sounds Present, Soft, Non Tender, Non-Distended : No dysuria. Polyuria. Light yellow color urine. No renal angle tenderness. No suprapubic tenderness. Extremities: No edema, Capillary Refill Less than 3 Seconds Skin: No rashes, No breakdown Musculoskeletal: No Tenderness to Palpation of Joints or Extremities Neurological: Cranial nerves II-XII grossly intact, DTR 2+/4. No acute focal neurological deficit. Psych/Mental Status: Normal Affect, Appropriate. Results Lab / Micro Data 10/28/23 11:40 10/28/23 11:40 Labs: Laboratory Results - last 24 hr 10/28/23 11:34: POC Glucose > 500 H* 10/28/23 11:40: WBC 7.8, RBC 4.56 L, Hgb 14.4, Hct 41.6, MCV 91.2, MCH 31.6, MCHC 34.6, RDW Std Deviation 40.1, RDW Coeff of Zen 12.1, Plt Count 228, MPV 10.9, Immature Gran % (Auto) 0.300, Neut % (Auto) 77.2 H, Lymph % (Auto) 13.1 L, Sevier % (Auto) 6.4, Eos % (Auto) 2.2, Baso % (Auto) 0.8, Absolute Neuts (auto) 6.0, Absolute Lymphs (auto) 1.02, Nucleated RBC % 0, Sodium 125 L, Potassium 5.2 H, Chloride 92 L, Carbon Dioxide 27.0, Anion (more content not included)... Normal [facility] Magnesiumon 10-28-2023 Magnesium [Mass/Vol] 2.0 mg/dL Normal 1.6-2.6 [facility] Comment on above: Performed By: #### L 501.7400 #### [facility] [address] [place], [address] Osmolality, Urineon 10-28-19 24 OSMOLALITY,UR 695 mOsm/KG Normal [facility] Comment on above: Result Comment: Normal Urine Reference Ranges Random: 50 - 1200 mOsm/kg H20 depending on fluid intake Random: >850 mOsm/kg after 12 hour fluid restriction 24 hour: 300 - 900 mOsm/kg H2O Performed By: #### L 501.7400 #### [facility] [address] [place], [address] Phosphoruson 10-28-2023 Phosphate [Mass/Vol] 3.7 mg/dL Normal 2.5-4.9 [facility] Comment on above: Performed By: #### L 501.7400 #### [facility] [address] [place], [address] Urinalysis, Completeon 10-27 BACTERIA 1+ /hpf Normal None Seen [facility] Comment on above: Order Comment: CLEAN CATCH Performed By: #### L 400.0001 #### [facility] [address] [place], [address] EPI,SQUAMOUS 0-5 SEEN Normal 0-5 [facility] Comment on above: Order Comment: CLEAN CATCH Performed By: #### L 400.0001 #### [facility] [address] [place], [address] WBC 0-5 SEEN Normal 0-5 [facility] Comment on above: Order Comment: CLEAN CATCH Performed By: #### L 400.0001 #### [facility] [address] [place], [address] YEAST 1+ /hpf Normal None Seen [facility] Comment on above: Order Comment: CLEAN CATCH Performed By: #### L 400.0001 #### [facility] [address] [place], [address] Mucus Ql (Urine sed) 0 SEEN Normal [facility] Comment on above: Order Comment: CLEAN CATCH Performed By: #### L 400.0001 #### [facility] [address] [place], [address] RBC 0 SEEN Normal 0-5 [facility] Comment on above: Order Comment: CLEAN CATCH Performed By: #### L 400.0001 #### [facility] [address] [place], [address] Venous Blood Gason 4 Blood Gas Type CHIDI Normal [facility] Comment on above: Performed By: #### L [id number] #### [facility] [address] [place], [address] CO2 [Moles/Vol] 27 mmol/L Normal 23-33 [facility] Comment on above: Performed By: #### L [id number] #### [facility] [address] [place], [address] FI02 21.0 Normal [facility] Comment on above: Performed By: #### L [id number] #### [facility] [address] [place], [address] HCO3 (Bld) [Moles/Vol] 26 mmol/L Normal 22-26 [facility] Comment on above: Performed By: #### L [id number] #### [facility] [address] [place], [address] O2 Delivery Dev Not entered Normal [facility] Comment on above: Performed By: #### L [id number] #### [facility] [address] [place], [address] SITE Not entered Normal [facility] Comment on above: Performed By: #### L [id number] #### [facility] [address] [place], [address] VBG BE 0 mmol/L Normal -1.0-3.5 [facility] Comment on above: Performed By: #### L [id number] #### [facility] [address] [place], [address] VBG pCO2 45.1 mmHg Normal 41-51 [facility] Comment on above: Performed By: #### L [id number] #### [facility] [address] [place], [address] VBG pH 7.36 Normal 7.32-7.42 [facility] Comment on above: Performed By: #### L [id number] #### [facility] [address] [place], [address] VBG PO2 27 mmHg Normal 25-40 [facility] Comment on above: Performed By: #### L [id number] #### [facility] [address] [place], [address] VBG SO2 48 Low 50-70 [facility] Comment on above: Performed By: #### L [id number] #### [facility] [address] [place], [address] HbA1c (Bld)on 12-03-2022 Average glucose Estimated from glycated hemoglobin (Bld) [Mass/Vol] 194 mg/dL Normal [facility] Comment on above: Order Comment: Speci men Type: BLOOD SPECIMEN Ordering Facility: [facility] Address: [address] [place] [address] Result Comment: eAG: (Estimated average glucose) is a calculated value from HgbA1c and is inbound customer service representative of the average blood glucose level in the last 2-3 month period. Performed By: #### 5 5454-3 #### [facility] CLIA [id number] [address] [place] [address] [place] HbA1c (Bld) [Mass fraction] 8.4 % High 4.3-5.6 [facility] Comment on above: Order Comment: Gianna eaton Type: BLOOD SPECIMEN Ordering Facility: [facility] Address: [place] [address] Result Comment: Amer ican Diabetes Association guidelines indicate that patients with HgbA1c in the range 5.7-6.4% are at increased risk for development of diabetes, and intervention by lifestyle modification may be beneficial. HgbA1c greater or equal to 6.5% is considered diagnostic of diabetes. Performed By: #### 5 5454-3 #### [facility] CLIA [id number] [address] [place] [address] [place] ALBUMIN/CREAT RATIO RND URon 07-08-2022 Albumin DL <= 20 mg/L (U) [Mass/Vol] 39.5 mg/L Normal [facility] Comment on above: Order Comment: Gianna eaton Type: URINE SPECIMEN Ordering Facility: [facility] Address: [address] [place] [address] Performed By: #### U ACR #### [facility] CLIA [id number] [address] [place] [address] [place] Albumin/Creatinine (U) [Mass ratio] 17 mg/g Normal <30 [facility] Comment on above: Order Comment: Gianna eaton Type: URINE SPECIMEN Ordering Facility: [facility] Address: [address] [place] [address] Result Comment: Adul t Male and Female Nephrotic Criteria: <30 mg/g is considered normal to mildly increased 30-300 mg/g is considered moderately increased >300 mg/g is considered severely increased KDIGO. (2013). KDIGO 2012 Clinical Practice Guideline for the Evaluation and Management of Chronic Kidney Disease. Official Journal of the International Society of Nephrology, 3(1), 1-150. Performed By: #### U ACR #### [facility] CLIA [id number] [address] [place] [address] [place] Creatinine (U) [Mass/Vol] 225.9 mg/dL Normal 20.0-300.0 [facility] Comment on above: Order Comment: Speci men Type: URINE SPECIMEN Ordering Facility: [facility] Address: [address] [place] [address] Performed By: #### U ACR #### [facility] CLIA [id number] [address] [place] [address] [place] HbA1c (Bld)on 07-08-2022 Average glucose Estimated from glycated hemoglobin (Bld) [Mass/Vol] 197 mg/dL Normal [facility] Comment on above: Order Comment: Speci men Type: BLOOD SPECIMEN Ordering Facility: [facility] Address: [address] [place] [address] Result Comment: eAG: (Estimated average glucose) is a calculated value from HgbA1c and is inbound customer service representative of the average blood glucose level in the last 2-3 month period. Performed By: #### 5 5454-3 #### [facility] CLIA [id number] [address] [place] [address] [place] HbA1c (Bld) [Mass fraction] 8.5 % High 4.3-5.6 [facility] Comment on above: Order Comment: Speci men Type: BLOOD SPECIMEN Ordering Facility: [facility] Address: [address] [place] [address] Result Comment: Amer ican Diabetes Association guidelines indicate that patients with HgbA1c in the range 5.7-6.4% are at increased risk for development of diabetes, and intervention by lifestyle modification may be beneficial. HgbA1c greater or equal to 6.5% is considered diagnostic of diabetes. Performed By: #### 5 5454-3 #### [facility] CLIA [id number] [address] [place] [address] [place] HbA1c (Bld)on 02-19-2022 Average glucose Estimated from glycated hemoglobin (Bld) [Mass/Vol] 166 mg/dL Normal [facility] Comment on above: Order Comment: Gianna eaton Type: BLOOD SPECIMEN Ordering Facility: [facility] Address: [address] [place] [address] Result Comment: eAG: (Estimated average glucose) is a calculated value from HgbA1c and is inbound customer service representative of the average blood glucose level in the last 2-3 month period. Performed By: #### 5 5454-3 #### [facility] CLIA [id number] [address] [place] [address] [place] HbA1c (Bld) [Mass fraction] 7.4 % High 4.3-5.6 [facility] Comment on above: Order Comment: Gianna eaton Type: BLOOD SPECIMEN Ordering Facility: [facility] Address: [address] [place] [address] Result Comment: Amer ican Diabetes Association guidelines indicate that patients with HgbA1c in the range 5.7-6.4% are at increased risk for development of diabetes, and intervention by lifestyle modification may be beneficial. HgbA1c greater or equal to 6.5% is considered diagnostic of diabetes. Performed By: #### 5 5454-3 #### [facility] CLIA [id number] [address] [place] [address] [place] Hemoglobin A1con 01-02-2021 Glucose [Mass/Vol] 174 mg/dL Normal [facility] Comment on above: Performed By: #### H BA1C #### [facility] Routine Lab [address] [place], [place] [address] HbA1c (Bld) [Mass fraction] 7.7 % High 4.3-5.6 [facility] Comment on above: Performed By: #### H BA1C #### [facility] Routine Lab [address], [place] [address] Hemoglobin A1con 09-05-2020 Glucose [Mass/Vol] 163 mg/dL Normal [facility] Comment on above: Performed By: #### H BA1C #### [facility] Routine Lab [address] [place], [place] [address] HbA1c (Bld) [Mass fraction] 7.3 % High 4.3-5.6 [facility] Comment on above: Performed By: #### H BA1C #### [facility] Routine Lab [address] [place], [place] [address] Encounters Encounter Date Encounter Type Care Provider Facility Start: 09-05-2024 ambulatory CASTILLO RAMIREZ [facility] Start: 05-03-2024 End: 05-03-2024 [facility] Start: 02-08-2024 End: 02-08-2024 ambulatory CASTILLO BADILLO [facility] Start: 12-11-2023 End: 12-15-[address] CASTILLO RAMIREZ MD Facility:A Start: 12-08-2023 End: 12-08-2023 [facility] Start: 10-28-2023 End: 10-29-2023 ambulatory Castillo Ramirez Facility:[facility] Procedures Date Procedure Procedure Detail Performing Clinician Start: 12-08-2023 PSA screening CASTILLO VALENTINE Comment on above: Performed By: #### 2 [id number] #### [facility],[address] [place] [address] Payers Date Payer Category Payer Medicare [id number] 2023 Self-pay 2015 Unknown [id number] 1945 Unknown [id number] 2.16.8 [id number] 1945 Unknown [id number] 2.16.8 [id number] 1945 Unknown [id number] 2.16.8 [id number] 1945 Unknown [id number] 2.16.8 [id number] 1945 Unknown [id number] 2.16.8 [id number] 1945 Unknown [id number] 2.16.8 [id number] 1945 Unknown [id number] 2.16.8 [id number] Unknown [id number] 2.16.8 [id number] Unknown [id number] 2.16.8 [id number] Unknown [id number] 2.16.8 [id number] Discharge summary note 10-29-2023 Note Date & Type Note Facility 10-29-2023 Note [facility] Medical Records Department [address] [place] [address] Discharge Summary 10/29/23 0913 MR#: [id number] Acct: [id number] Name: FRANK NOBLE Rep #: [id number] : 1945 78 From: Andrew Galeas DO PCP: Dr. Castillo Ramirez MD Status:ADM FOX Location: [place] [address] Providers Date of Admission: 10/28/23 Primary Care Physician: Dr. Castillo Ramirez MD Reason For Visit: DM2 WITH HYPERGLYCEMIA RAJENDRA Diagnosis Discharge Diagnosis (1) RAJENDRA (acute kidney injury): Status: Acute Code(s): N17.9 - Acute kidney failure, unspecified (2) Hyperosmolar hyperglycemic state (HHS): Status: Acute Code(s): E11.00 - Type 2 diabetes mellitus with hyperosmolarity without nonketotic hyperglycemic-hyperosmolar coma (NKHHC) Plan DM2, uncontrolled * admission glucose was 729 * received 15 units lispo in ED. * On glargine 15 units, 8 units lispo QAC and SSI. Would discharge with glarine 15 units/d. Advised to have him check is glucose in AM and PM and PRN. * a1c pending * Non-insulin dependent at home (metformin, pioglitazone). I strongly suspect he will be dischared with insulin upon discharge Hyponatremia: * suspect pseudohyponatremia from hyperglycemia * monitor Possible RAJENDRA * no baseline labs available. * on IVF Chronic conditions: * hyperlipidemia: continue rosuvastatin 40 mg daily * Hypertension: Patient on atenolol 25 mg daily, continue from tomorrow a.m. * Possible GERD: Patient on PPI, continued Code: Full. Medications at Discharge Home Medications atenolol 25 mg tablet 25 mg PO DAILY 10/28/23 pantoprazole 20 mg tablet,delayed release 20 mg PO DAILY 10/28/23 rosuvastatin 40 mg tablet 40 mg PO QPM 10/28/23 insulin glargine-yfgn 100 unit/mL (3 mL) subcutaneous pen 15 unit (0.15 mL) subcut DAILY #15 mL 10/29/23 pen needle, diabetic 29 gauge #100 ea 10/29/23 Hospital Course Operations None Procedures None Summary of Care Provided Minutes Spent on Discharge: 35 Hospital Course: Patient presents feeling weak, associated polyuria and polydipsia. Patient was found to have a glucose of 729. Patient was a known type II diabetic and was taking metformin and pioglitazone. He however, stopped checking his blood sugar sometime ago so had no idea what his sugars have been. Is likely the patient has been hyperglycemic this whole time which is why he is likely feeling unwell. Patient received insulin here and his sugars went to the 200s. Patient does admit to noncompliance with diabetic diet and the fact that he likes sweets. Feel the patient can be discharged home today with continuing of Lantus. I suspect that there will be changes necessary moving forward but patient advised to check his glucose as well as keep a record of that to be able to provide to his primary care provider. Weight / BMI Weight Weight: 74.9 kg Body Mass Index (BMI) 28.3 ABG / Lab / Microbiology Data 10/28/23 11:40 10/28/23 11:40 Laboratory: Laboratory Results - last 24 hr 10/28/23 11:34: POC Glucose > 500 H* 10/28/23 11:40: WBC 7.8, RBC 4.56 L, Hgb 14.4, Hct 41.6, MCV 91.2, MCH 31.6, MCHC 34.6, RDW Std Deviation 40.1, RDW Coeff of Zen 12.1, Plt Count 228, MPV 10.9, Immature Gran % (Auto) 0.300, Neut % (Auto) 77.2 H, Lymph % (Auto) 13.1 L, Sevier % (Auto) 6.4, Eos % (Auto) 2.2, Baso % (Auto) 0.8, Absolute Neuts (auto) 6.0, Absolute Lymphs (auto) 1.02, Nucleated RBC % 0, Sodium 125 L, Potassium 5.2 H, Chloride 92 L, Carbon Dioxide 27.0, Anion Gap 6, BUN 22 H, Creatinine 1.57 H, Est GFR (MDRD) Af Amer 56 L, Est GFR (MDRD) Non-Af 46 L, BUN/Creatinine Ratio 14.0, Glucose 729 H*, Calcium 9.7, Phosphorus 3.7, Magnesium 2.0, Total Bilirubin 1.30 H, AST 12 L, ALT 25, Alkaline Phosphatase 68, Total Protein 7.3, Albumin 3.7, Globulin 3.6, Albumin/Globulin Ratio 1.0 10/28/23 12:10: Urine Color Yellow, Urine Clarity Clear, Urine pH 6.5, Ur Specific [place] 1.005, Urine Protein Negative, Urine Glucose (UA) 1000 H, Urine Ketones 5 H, Urine Occult Blood Negative, Urine Nitrite Negative, Urine Bilirubin Negative, Urine Urobilinogen Normal, Ur Leukocyte Esterase 500 H, Urine RBC 0 SEEN, Urine WBC 0-5 SEEN, Ur Squamous Epith Cells 0-5 SEEN, Urine Bacteria 1+, Urine Mucus 0 SEEN, Urine Yeast 1+ 10/28/23 12:30: Acetone Level NEGATIVE 10/28/23 14:35: POC Glucose 474 H* 10/28/23 18:59: POC Glucose 229 H 10/28/23 20:35: POC Glucose 149 H 10/28/23 21:05: Urine Osmolality 695 10/28/23 23:36: POC Glucose 176 H 10/29/23 05:44: POC Glucose 264 H ABG: ABG 10/28/23 12:42 Specimen Type CHIDI Sample Site Not entered O2 % 21.0 VBG pH 7.36 VBG pO2 27 VBG HCO3 26 VBG Total CO2 27 VBG O2 Sat (Calc) 48 L VBG Base Excess 0 POC Mix VBG pCO2 Pt Tmp 45.1 O2 Delivery Device Not entered D/C Instructions Discharge Diet: 2000 Calorie Control Di (more content not included)... [facility] Summary Purpose Family History No Family History Records FoundNo Family History Records FoundNo Family History Records FoundNo Family History Records FoundNo Family History Records Found Advance Directives No Advanced Directives Records FoundNo Advanced Directives Records FoundNo Advanced Directives Records FoundNo Advanced Directives Records FoundNo Advanced Directives Records Found Additional Source Comments (unrecognized sect ion and content) No Status Records FoundNo Status Records FoundNo Status Records FoundNo Status Records FoundNo Status Records Found INFORMATION SOURCE (unrecogn ized section and content) DATE CREATED AUTHOR 01/04/2021 [facility] DATE CREATED AUTHOR AUTHOR'S ORGANIZ ATION 12/05/2022 [facility] DATE CREATED AUTHOR AUTHOR'S ORGANIZ ATION 11/08/2023 [facility] DATE CREATED AUTHOR AUTHOR'S ORGANIZ ATION 12/24/2023 [facility] DATE CREATED AUTHOR AUTHOR'S ORGANIZ ATION 09/07/2024 [facility] FOR RECORDS PERTAINING TO PATIENTS WHO ARE OR HAVE BEEN ENROLLED IN A CHEMICAL DEPENDENCY/SUBSTANCEABUSE PROGRAM, SOME INFORMATION MAY BE OMITTED. This clinical summary was aggregated from multiple sources. Caution should be exercised in using it in the provision of clinical care. This summary normalizes information from multiple sources, and as a consequence, information in this document may materially change the coding, format and clinical context of patient data. In addition, data may be omitted in some cases. CLINICAL DECISIONS SHOULD BE BASED ON THE PRIMARY CLINICAL RECORDS. [employer] [facility]. provides no warranty or guarantee of the accuracy or completeness of information in this document.
--- NOTE | 2025-04-11 16:30 | CT_ITS ---
PROCEDURE: CT ABDOMEN/PELVIS W IV CONT ONLY 04/11/2025 REASON FOR EXAM: ABDOMINAL PAIN TECHNIQUE: Procedure Code: [id number] Modality: CT Procedure: ABDOMEN/PELVIS W IV CONT ONLY Coronal and Sagittal reconstruction series were provided. CONTRAST: Isovue-300 VOLUME: 96 mL One or more dose reduction techniques were used (e.g., Automated exposure control, adjustment of the mA and/or kV according to patient size, use of iterative reconstruction technique. RADIATION DOSE SUMMARY: DLP: 850.41 mGycm COMPARISON: None. FINDINGS: Lung bases: Clear. Mild dependent atelectasis. Coronary artery calcifications. Liver: Diffuse hepatic steatosis. Gallbladder: Unremarkable. No biliary ductal dilatation. Spleen: Unremarkable. Pancreas: No definite abnormality. No ductal dilatation. Adrenals: Unremarkable. Kidneys: No urolithiasis or hydronephrosis. Several bilateral small simple renal cysts. Bladder: Unremarkable. Reproductive Organs: Mildly enlarged prostate. Bowel: Wall thickening/edema of the proximal small bowel particularly involving the duodenum, suggesting duodenitis/jejunitis, possibly related to peptic ulcer disease. No obstruction or active inflammatory process elsewhere. Normal appendix. Distal colonic diverticulosis without active diverticulitis. Lymph nodes: No suspicious lymph node enlargement. Vasculature: Normal caliber abdominal aorta. Moderate atherosclerotic disease. Peritoneum / Retroperitoneum: No free fluid collection or free air. Bones: Multilevel degenerative changes of the spine. Degenerative grade 1 anterolisthesis of L4 on L5, and grade 1 retrolisthesis of L5 on S1. CT/Abdomen/Pelvis W IV Cont ONLY IMPRESSION: Edematous wall thickening and inflammation involving the proximal small bowel p articularly the duodenum, compatible with duodenitis/enteritis. Possibly related to peptic ulcer disease. Reading Location: [id number]
--- NOTE | 2025-04-11 16:34 | EX.ED.DYSGE1 ---
HPI History of Present Illness Chief Complaint: GI Bleed Narrative Narrative: Chief complaint and HPI: 79-year-old male with past medical history of DM, HTN, HLD, history of ulcer with GI bleed presents for evaluation of abdominal pain and dark stools. Patient states for the past couple weeks he has been having dark stools, abdominal pain, and nausea with decreased appetite. He states it has been a year since he got a colonoscopy. States he does Cologuard. He denies any fever, chills, diarrhea, constipation, dysuria. Denies any daily ibuprofen or alcohol use. Review of systems: See HPI Medications: As listed on the chart Allergies: As listed on the chart PFSH: Per chart Vital signs: As listed on the chart. Reviewed. Physical exam: Gen: A&O x3, NAD Head: Normocephalic, atraumatic Eyes: No sclera icterus, conjunctiva clear ENT: Moist mucous membranes CV: RRR, no murmurs Resp: Lungs CTA BL, no w/r/c GI: Abd soft, non-distended, non-tender, no r/r/g Rectal: Normal external examination. No evidence of hemorrhoids or fissures. Normal tone and sensation. No masses, fluctuance, or tenderness. No pain out of proportion. Stool brown. Musc: Full ROM, no deformity Skin: Warm, dry Neuro: Alert, oriented, grossly intact, sensation intact Psych: Cooperative, appropriate mood and affect [facility] Medical History (Updated 04/11/25 @ 17:21 by Jordyn Syed) Diabetes Hypertension Home Medications ?Medication ?Instructions ?Recorded ?Last Taken ?Type atenolol 25 mg tablet 25 mg PO DAILY 10/28/23 04/04/25 History pantoprazole 20 mg tablet,delayed 20 mg PO DAILY 10/28/23 04/03/25 History release rosuvastatin 40 mg tablet 40 mg PO QPM 10/28/23 04/03/25 History pen needle, diabetic 29 gauge #100 ea 10/29/23 Unknown Rx dicyclomine 10 mg capsule 10 mg PO TID PRN abdominal pain 04/04/25 Unknown Rx #21 caps glipizide 10 mg tablet, extended 20 mg PO DAILY 04/04/25 04/04/25 History release 24 hr insulin glargine 100 unit/mL (3 32 unit subcut QPM 04/04/25 04/03/25 History mL) subcutaneous pen (Basaglar KwikPen U-100 Insulin) lisinopril 2.5 mg tablet 2.5 mg PO DAILY 04/04/25 04/04/25 History metformin 500 mg tablet,extended 1,000 mg PO QPM 04/04/25 04/04/25 History release 24 hr Allergy/AdvReac Type Severity Reaction Status Date / Time No Known Allergies Allergy Verified 04/11/25 16:19 Family History Father Myocardial infarction Social History household members: spouse Smoking Status: Never smoker EXAM Physical Exam Const Vital Signs: 04/11/25 16:18 04/11/25 18:18 04/11/25 20:00 Temperature 98 F Temperature Source Oral Pulse Rate 121 H 100 99 Respiratory Rate 18 18 18 Blood Pressure 127/105 H 149/97 H 105/72 Blood Pressure Mean 112 114 83 Pulse Ox 100 99 96 Oxygen Delivery Method Room Air Room Air Room Air MDM MDM MDM Narrative Medical decision making narrative: 79-year-old male with past medical history of DM, HTN, HLD, history of ulcer with GI bleed presents for evaluation of abdominal pain and dark stools. Patient states for the past couple weeks he has been having dark stools, abdominal pain, and nausea with decreased appetite. He states it has been a year since he got a colonoscopy. States he does Cologuard. Denies any daily ibuprofen or alcohol use. Differential diagnosis includes but is not limited to upper GI bleed, lower GI bleed, anemia, electrolyte abnormality, colitis, cancer. NS bolus, morphine, Zofran, Protonix ordered for symptoms. Laboratory workup ordered including CT abdomen pelvis. CBC shows leukocytosis of 14.2. Patient has no anemia. Platelets unremarkable. CMP shows renal insufficiency with a BUN of 41 and a creatinine of 1.22. Renal insufficiency is new from earlier this month. Patient has hyperglycemia with known diabetes. He has mild ALT transaminitis which is downtrending from 04/04. Lactic acid unremarkable. Patient has hypercalcemia of 13. Previous 11.4 in 04/04. Patient receiving fluids. Will give ionized calcium. UA positive for glucose. Negative for UTI. Stool occult negative. CT abdomen pelvis shows edematous wall thickening and inflammation involving the proximal small bowel particular in the duodenum, compatible with duodenitis/enteritis. Possibly related to PUD. Given patient's CT abdomen pelvis findings, I did consult Dr. Avila with GI. He feels that this thickening is likely reactive. No need for emergent endoscopy. No need for antibiotics. Recommended Carafate 3 times a day and PPI 2 times a day. Follow-up in his office. Patient's ionized calcium is elevated at 1.51. Will reach out to hospitalist. Patient was discussed with the hospitalist and Dr. Jurgen Fox came and evaluated the patient. He states that the patient has been taking a multivitamin, multiple times, and a vitamin D supplement. He told the patient to stop taking these to see if his hypercalcemia improves. Also told him to stop drinking milk. He is requesting that I have the patient repeat a calcium level in 1 week. This will be ordered. He will order some labs to be drawn for hypercalcemia and they will but states that the patient does not need to wait for these. These will be for his PCP outpatient. Patient confirmed understanding. He was updated of Dr. Cummings's recommendations. Patient states he is currently not taking pantoprazole. Therefore patient will be placed on a PPI twice daily as well as the Carafate 3 times a day for 2 weeks. Return precautions explained. He confirmed understand the plan. Patient able to discharge home. Impression: 1. Abdominal pain, suspect PUD 2. Hypercalcemia 3. Renal insufficiency Lab Data Labs: Laboratory Results - last 24 hr 04/11/25 04/11/25 04/11/25 16:45 18:30 19:14 WBC 14.2 H RBC 4.16 L Hgb 13.2 Hct 38.9 L MCV 93.5 MCH 31.7 MCHC 33.9 RDW Std Deviation 44.2 H RDW Coeff of Zen 13.0 Plt Count 362 MPV 10.1 Immature Gran % (Auto) 0.400 Neut % (Auto) 84.7 H Lymph % (Auto) 8.6 L Lawrence % (Auto) 5.8 Eos % (Auto) 0.1 Baso % (Auto) 0.4 Absolute Neuts (auto) 12.0 H Absolute Lymphs (auto) 1.22 Nucleated RBC % 0 Sodium 136 Potassium 4.6 Chloride 97 Carbon Dioxide 24.4 Anion Gap 14 BUN 41 H Creatinine 1.22 H Estim Creat Clear Calc 47.34 L Est GFR (MDRD) Non-Af 61 BUN/Creatinine Ratio 33.6 H Glucose 325 H Lactic Acid 2.0 Calcium 13.0 H* Ionized Calcium 1.51 H Total Bilirubin 0.62 AST 16 ALT 56 H Alkaline Phosphatase 78 Total Protein 7.2 Albumin 4.1 Globulin 3.0 Albumin/Globulin Ratio 1.4 Lipase 55 Urine Color Yellow Urine Clarity Clear Urine pH 6.0 Ur Specific Freedom 1.020 Urine Protein 30 H Urine Glucose (UA) 1000 H Urine Ketones 5 H Urine Occult Blood Negative Urine Nitrite Negative Urine Bilirubin Negative Urine Urobilinogen Normal Ur Leukocyte Esterase Negative Urine RBC 0 SEEN Urine WBC 0-5 SEEN Ur Squamous Epith Cells 0 SEEN Urine Bacteria 0 SEEN Urine Mucus 0 SEEN Radiography Diagnostic Testing: Clinical Impression(s) from Imaging Studies Abdomen/Pelvis CT 04/11/25 16:30 IMPRESSION: Edematous wall thickening and inflammation involving the proximal small bowel particularly the duodenum, compatible with duodenitis/enteritis. Possibly related to peptic ulcer disease. Reading Location: [facility] Discharge Plan Triage Chief Complaint: GI Bleed ED Provider: Derek Banegas Dx/Rx/DC Orders Prescriptions: No Action glipizide 10 mg tablet extended release 24hr 20 mg PO DAILY metformin 500 mg tablet extended release 24 hr 1,000 mg PO QPM lisinopril 2.5 mg tablet 2.5 mg PO DAILY insulin glargine [Basaglar KwikPen U-100 Insulin] 100 unit/mL (3 mL) insulin pen 32 unit subcut QPM dicyclomine 10 mg capsule 10 mg PO TID PRN (Reason: abdominal pain) Qty: 21 0RF atenolol 25 mg tablet 25 mg PO DAILY pantoprazole 20 mg tablet,delayed release (DR/EC) 20 mg PO DAILY rosuvastatin 40 mg tablet 40 mg PO QPM (DME) pen needle, diabetic 29 gauge needle See Rx Instructions .Route Qty: 100 0RF Rx Instructions: As directed Primary Care Provider: Care Physician,No Primary Referrals: Care Physician,No Primary [Primary Care Provider, Medical] Print Language: Latvian
[2025-04-11] MEDS: 0.9% Normal Saline (1000mL) 1,000 ML 999 ML IV (16:52)
[2025-04-11] MEDS: Pantoprazole Sodium 40 MG in 0.9% Normal Saline (100mL MB+) 100 ML 300 MG IV (16:53)
[2025-04-11 17:05] LABS: Hematocrit 38.9 % (40-54); Hemoglobin 13.2 g/dL (13.0-16.5); Immature Granulocytes Count 0.060 X10^3/uL (0.0-0.0); Mean Corp Hgb Conc 33.9 g/dL (32-36); Mean Corpuscular Volume 93.5 fL (80-94); Mean Platelet Vol. 10.1 fl (6.2-12.0); NRBC Flagged by Analyzer 0 % (0-5); Platelet Count 362 K/mm3 (150-450); RBC Distribution Width CV 13.0 % (11.6-14.6); RBC Distribution Width SD 44.2 fl (35.1-43.9); Red Blood Count 4.16 M/mm3 (4.6-6.2); White Blood Count 14.2 K/mm3 (4.4-11.0)
[2025-04-11 17:35] LABS: Lipase 55 U/L (13-75)
[2025-04-11 18:00] LABS: AST(SGOT) 16 U/L (<=37); Alanine Aminotransfer ALT/SGPT 56 U/L (<=46); Albumin, Serum 4.1 g/dL (3.4-4.8); Alkaline Phosphatase 78 U/L (40-129); Anion Gap 14 (7-18); Calcium,Total 13.0 mg/dL (7.6-11.0); Carbon Dioxide 24.4 mmol/L (20.0-29.0); Chloride 97 mmol/L (96-106); Estimated Creatinine Clearance 47.34 ml/min (50-250); Globulin 3.0 g/dL (2.2-4.2); Glucose 325 mg/dL (70-99); Potassium 4.6 mmol/L (3.5-5.1)
[2025-04-11 18:04] LABS: BUN 41 mg/dL (4-19); BUN/Creat Ratio 33.6 RATIO (10-20)
[2025-04-11 18:18] VITALS: BP 149/97; PULSE 100; RESP 18; O2SAT 99
[2025-04-11 18:39] LABS: Mucous, Urine 0 SEEN /hpf (<or=2+); Red Blood Cells-Urine 0 SEEN /hpf (0-5); Squamous Epithelial Cells - UA 0 SEEN /hpf (0-5)
[2025-04-11 18:41] LABS: Color, Urine Yellow (Yellow); Glucose, Dipstick 1000 mg/dl (Normal); Ketone-Dipstick 5 mg/dl (Negative); Leukocyte Esterase-Dipstick Negative /ul (Negative); Nitrite-Dipstick Negative (Negative); Occult Blood-Urine Negative /ul (Negative); Protein-Dipstick 30 mg/dl (Negative); Specific Gravity, Urine 1.020 (1.002-1.030); Urine Bilirubin Dipstick Negative (Negative)
[2025-04-11 20:00] VITALS: BP 105/72; PULSE 99; RESP 18; O2SAT 96
[2025-04-11 20:11] LABS: Ionized Calcium Order ORDER TUBE
--- NOTE | 2025-04-11 20:30 | EKG12_ITS ---
Test Reason : GI Blood Pressure : */* mmHG Vent. Rate : 100 BPM Atrial Rate : 100 BPM P-R Int : 210 ms QRS Dur : 98 ms QT Int : 330 ms P-R-T Axes : 41 0 43 degrees QTcB Int : 425 ms Sinus rhythm with 1st degree A-V block Inferior infarct (cited on or before 04-Apr-2025) Abnormal ECG Confirmed by Umang Morton ([id number]), supervising editor trailer TRAMAINE KOO ([id number]) on 04/13/2025 8:01:47 AM Referred By: Confirmed By: Umang Morton
[2025-04-11 21:01] LABS: Reflex Lactate? Y
[2025-04-11 21:26] LABS: PTHIN 10 pg/mL (11-61)
[2025-04-11 21:31] VITALS: BP 140/87; PULSE 100; RESP 18; TEMP 36.7; O2SAT 100
[2025-04-11 21:59] LABS: Vitamin D,25 Hydroxy 59.6 ng/mL (30-100)
[2025-04-16 13:07] LABS: PROEL- A/G Ratio 1.1 (0.7-1.7); PROEL- Albumin 3.2 g/dL (2.9-4.4); PROEL- Alpha-1 Globulin 0.2 g/dL (0.0-0.4); PROEL- Alpha-2 Globulin 0.9 g/dL (0.4-1.0); PROEL- Beta Globulin 1.0 g/dL (0.7-1.3); PROEL- Gamma Globulin 0.7 g/dL (0.4-1.8); PROEL- Globulin, Total 2.8 g/dL (2.2-3.9); PROEL- TOTAL PROTEIN 6.0 g/dL (6.0-8.5); PROEL-M-Spike Not Observed g/dL (Not Observed)
== END 2025-04-11 21:39 | disposition home or self-care (01) ==
PROVIDERS: Internal Medicine; Emergency Provider Surgery; Visit Provider Surgery
DX: K92.2 Gastrointestinal hemorrhage, unspecified (principal); Z79.4 Long term (current) use of insulin; E11.9 Type 2 diabetes mellitus without complications; R10.9 Unspecified abdominal pain; R11.0 Nausea; I10 Essential (primary) hypertension; E78.5 Hyperlipidemia, unspecified; E83.52 Hypercalcemia; Z79.84 Long term (current) use of oral hypoglycemic drugs; Z79.899 Other long term (current) drug therapy; N28.9 Disorder of kidney and ureter, unspecified
CPT/HCPCS: 74177; 80053; 81001; 82274; 82306; 82330; 83605; 83690; 83970; 84165; 85025; 93005; 96361; 96365; 96375; 99283; Q9967; A4216; J2405